=== PATIENT | female | born 1935 | race Caucasian/White ===

== ENCOUNTER 2017-07-20 08:07 | Day surgery (SDC) | payer MEDICARE, OTHER ==
[~2017-07-20 08:07] MED LIST: Lactated Ringers 1,000 ML IV SCH; Lidocaine 1%/Sod Bicarbonate in NS 8.4% 1 ML Syringe IV PRN; Sodium Chloride 0.9% 10 ML Syringe FLUSH PRN
[2017-07-20] MEDS ORDERED: Lidocaine 1% 50 ML MDV ONE (09:18)
[2017-07-20] MEDS ORDERED: Bupivacaine 0.25% 30 ML SDV ONE (09:18)
[2017-07-20 10:39] VITALS: BP 125/72
--- NOTE | 2017-07-25 13:44 | PCM.OPNOTE ---
- General Post-Op/Procedure Note Date of Surgery/Procedure: 07/20/17 Operative Procedure(s): right middle finger a1 jake release Pre Op Diagnosis: right middle finger stenosing tenosynovitis Post-Op Diagnosis: Same Anesthesia Technique: Local Primary Surgeon: Lenny Peterson Child Support Specialist: Shanel Stark in mLs: 5 Complications: None Condition: Good
--- NOTE | 2017-07-25 15:03 | OR ---
DATE OF OPERATION: 07/20/2017 SURGEON: Lenny Peterson MD OPERATION PERFORMED: Right middle finger A1 jake release. PREOPERATIVE DIAGNOSIS: Right middle finger stenosing and tenosynovitis. POSTOPERATIVE DIAGNOSIS: Right middle finger stenosing and tenosynovitis. ANESTHESIA: Local. AGRICULTURAL LOAN OFFICER: Shanel Stark PA-C ESTIMATED BLOOD LOSS: Less than 5 mL. COMPLICATIONS: None. CONDITION: Stable. DESCRIPTION OF PROCEDURE: The patient was identified in the preop holding area where proper site was marked and identified by the surgeon. The patient was taken back to the operating theater where the patient's right upper extremity was sterilely prepped and draped in the usual sterile fashion. OR time-out was performed. The patient did not received antibiotics and not indicated for soft tissue hand procedure. At this time, 1% lidocaine without epinephrine and 0.25% Marcaine without epinephrine were used to anesthetize the incisional site over the A1 jake of the right long finger. Once this was set up, the patient's right upper extremity was exsanguinated with an Esmarch and Esmarch was used on the forearm as a tourniquet. A standard transverse incision was made over the A1 jake. Blunt dissection was taken down to the A1 jake and flexor tendon sheath. Ragnell retractors were then placed both radially and ulnarly to protect the neurovascular bundle. [place]vik blade was then used for incision of the A1 jake. A tenotomy scissor was then used for release both proximally and distally making sure not to get into the A2 jake. At this time it was found to be adequate release both proximally and distally with no signs of triggering as the patient actively flexed and extended her long finger. At this time, adequate saline was irrigated through the wound. A 4-0 nylon simple suture was used for closure of the skin. The patient was placed in a sterile soft tissue dressing and sent to PACU in stable condition. MMODAL /[id number]
== END 2017-07-20 10:55 | disposition home or self-care (01) ==
LOC: JD.SDS 08:07
PROVIDERS: ATTEND Orthopaedic Surgery
DX: M65.331 Trigger finger, right middle finger (principal); G30.9 Alzheimer's disease, unspecified; F02.80 Dementia in other diseases classified elsewhere, unspecified severity, without behavioral disturbance, psychotic disturbance, mood disturbance, and anxiety; I48.91 Unspecified atrial fibrillation; I11.0 Hypertensive heart disease with heart failure; I50.30 Unspecified diastolic (congestive) heart failure; Z79.01 Long term (current) use of anticoagulants; Z79.82 Long term (current) use of aspirin; Z79.899 Other long term (current) drug therapy; Z88.8 Allergy status to other drugs, medicaments and biological substances; Z90.49 Acquired absence of other specified parts of digestive tract; Z90.710 Acquired absence of both cervix and uterus; Z98.41 Cataract extraction status, right eye; Z98.42 Cataract extraction status, left eye; Z98.890 Other specified postprocedural states; Z87.891 Personal history of nicotine dependence
CPT/HCPCS: 26055; 36415; 85610; 87641; J3490

== ENCOUNTER 2019-08-13 08:19 | Emergency (ER) | payer MEDICARE, OTHER ==
--- NOTE | 2019-08-13 08:53 | EDM.PDOC ---
ED HPI GENERAL MEDICAL PROBLEM - General Chief Complaint: Cardiovascular Problem Stated Complaint: FLUID RETENTION Time Seen by Provider: 08/13/19 08:53 - History of Present Illness INITIAL COMMENTS - FREE TEXT/NARRATIVE: 83-year-old female presents emergency room with weight gain worsening edema and shortness of breath. The patient has become progressively more short of breath and has developed a cough over the last several days This was noticed yesterday the patient was out with her daughter the daughter noticed significant shortness of breath. At the assisted living center they've noted fluid in her ankles for the last couple of days. She does have a history of congestive heart failure. She's had an SC several years ago and has atrial fibrillation and is on a factor X inhibitor. She is not taking any diuretics at this time. Patient denies any chest pain at this point complains mostly shortness of breath. The daughter put the patient on a scale this morning and apparently she has the 10 pounds. Neck Pain Score (Numeric/FACES): 7 - Related Data Allergies Allergy/AdvReac Type Severity Reaction Status Date / Time estrogens, conjugated Allergy Burning Verified 08/13/19 08:37 prednisone Allergy Hypertensio Verified 08/13/19 08:37 n dextromethorphan AdvReac Hyperactivi Verified 08/13/19 08:37 ty diphenhydramine HCl AdvReac Hyperactivi Verified 08/13/19 08:37 [From Benadryl] ty pseudoephedrine AdvReac Hyperactivi Verified 08/13/19 08:37 ty Home Meds: Home Meds Acetaminophen [Tylenol Arthritis Pain] 650 mg PO Q6HR PRN 12/03/13 [History] Isosorbide Mononitrate [Imdur] 120 mg PO DAILY 12/03/13 [History] amLODIPine Besylate [Amlodipine Besylate] 5 mg PO DAILY 12/03/13 [History] Rosuvastatin [Crestor] 20 mg PO DAILY 07/24/14 [History] Chlorthalidone 25 mg PO DAILY PRN 11/07/14 [History] Donepezil HCl [Aricept] 10 mg PO DAILY 07/19/17 [History] Metoprolol Tartrate [Lopressor] 25 mg PO BID 07/19/17 [History] Multivitamin [Poly-Vitamin] 1 tab PO DAILY 07/19/17 [History] traMADol HCl [Ultram] 50 - 100 mg PO Q6H PRN #10 tablet 07/20/17 [Rx] Aspirin [Halfprin] 81 mg PO DAILY 04/18/19 [History] Cholecalciferol (Vitamin D3) [Vitamin D3] 1,000 unit PO DAILY 04/18/19 [History] Cyanocobalamin (Vitamin B-12) [Vitamin B12] 2,500 mcg PO DAILY 04/18/19 [History ] Cyclobenzaprine [Flexeril] 5 mg PO TID PRN 04/18/19 [History] Diclofenac Sodium [Voltaren 1% Gel] 1 applic TOP ASDIRECTED PRN 04/18/19 [ History] Ferrous Sulfate [Feosol] 325 mg PO BID 04/18/19 [History] Folic Acid 1 mg PO DAILY 04/18/19 [History] Ipratropium [place] 2 spray INH TID 04/18/19 [History] Levothyroxine 25 mcg PO DAILY 04/18/19 [History] Loperamide HCl [Imodium A-D] 2 mg PO ASDIRECTED PRN 04/18/19 [History] Loratadine 10 mg PO DAILY 04/18/19 [History] Losartan [Cozaar] 50 mg PO BID 04/18/19 [History] Methyl Salicylate/Menthol [Salonpas Patch] 1 patch TOP ASDIRECTED 04/18/19 [ History] Rivaroxaban [Xarelto] 15 mg PO DAILY 04/18/19 [History] Sodium Chloride [Saline Nasal Mist] 2 spray INH ASDIRECTED PRN 04/18/19 [History ] Furosemide [Lasix] 20 mg PO DAILY #10 tab 08/13/19 [Rx] Potassium Chloride [Klor-Con 10] 10 meq PO DAILY #10 tablet.er 08/13/19 [Rx] Ubidecarenone [Coenzyme Q10] 1 tab PO DAILY 08/13/19 [History] Past Medical History HEENT History: Reports: Allergic Rhinitis, Cataract, Sinusitis Other HEENT History: upper denture, wears glasses Cardiovascular History: Reports: Afib, CAD, Heart Failure, Heart Murmur, High Cholesterol, Hypertension, SC, Stents, Other (See Below) Other Cardiovascular History: venous insufficiency, ACSCVD, cehst pain, chest wall contusion, peripheral vascular disease, edema Respiratory History: Reports: SOB Gastrointestinal History: Reports: Colon Polyp, Gastritis, Hemorrhoids, Other ( See Below) Other Gastrointestinal History: esophagitis, RUQ apin Genitourinary History: Reports: Chronic Renal Insuffiency, UTI, Recurrent Other Genitourinary History: frequency ACCOUNT EXECUTIVE AGRIBUSINESS History: Reports: , Other (See Below) Other ACCOUNT EXECUTIVE AGRIBUSINESS History: [employer] Musculoskeletal History: Reports: Back Pain, Chronic Other Musculoskeletal History: trigger finger release R 4th, arthrocentesis R shoulder and R hip, back surgery, spinal stenosis, neck pain, discetomy, buldged disc to neck, pinched nerve Neurological History: Reports: Alzheimers Disease Psychiatric History: Reports: Other (See Below) Other Psychiatric History: insomnia Endocrine/Metabolic History: Reports: None Hematologic History: Reports: Anemia, Iron Deficiency Immunologic History: Reports: None Oncologic (Cancer) History: Reports: None Dermatologic History: Reports: Other (See Below) Other Dermatologic History: dernatitis, lipoma, seborrheic keratosis, roascea - Past Surgical History Head Surgeries/Procedures: Reports: None HEENT Surgical History: Reports: Cataract Surgery Respiratory Surgical History: Reports: None GI Surgical History: Reports: Appendectomy, Cholecystectomy, Colonoscopy, EGD Other GI Surgeries/Procedures: hemorrhoid surgery Female Surgical History: Reports: Hysterectomy Endocrine Surgical History: Reports: None Neurological Surgical History: Reports: Discectomy, Other (See Below) Other Neurological Surgeries/Procedures: lumbar and cervical spine surgery Musculoskeletal Surgical History: Reports: Other (See Below) Other Musculoskeletal Surgeries/Procedures:: plate in neck Social & Family History - Family History Family Medical History: Noncontributory - Tobacco Use Smoking Status *Q: Former Smoker Used Tobacco, but Quit: Yes Month/Year Tobacco Last Used: 09/1994 - Caffeine Use Caffeine Use: Reports: None - Recreational Drug Use Recreational Drug Use: No ED ROS GENERAL - Review of Systems Review Of Systems: See Below Constitutional: Reports: No Symptoms Respiratory: Reports: Shortness of Breath, Cough. Denies: Wheezing, Pleuritic Chest Pain, Sputum, Hemoptysis Cardiovascular: Reports: Dyspnea on Exertion, Edema. Denies: Chest Pain Endocrine: Reports: Polyuria. Denies: No Symptoms GI/Abdominal: Reports: Other (She has a sense of abdominal fullness and perhaps some distention but no pain or discomfort). Denies: Abdominal Pain (She has a sense of abdominal fullness but no discomfort), Constipation, Diarrhea, Nausea, Vomiting : Reports: No Symptoms Musculoskeletal: Reports: No Symptoms Skin: Reports: No Symptoms Neurological: Reports: No Symptoms, Other (He has some underlying dementia but this is not changed) Psychiatric: Reports: No Symptoms. Denies: Agitation, Anxiety ED EXAM, GENERAL - Physical Exam Exam: See Below Exam Limited By: No Limitations General Appearance: Alert, No Apparent Distress, Other (Her initial O2 saturation was in the mid 80s she was started on supplemental oxygen per nasal cannula ) Head: Atraumatic, Normocephalic Neck: Normal Inspection. No: Full Range of Motion, Lymphadenopathy (R) Respiratory/Chest: No Respiratory Distress, Crackles (He has diffuse fine crackles throughout) Cardiovascular: Normal Peripheral Pulses, Other (She has an irregularly irregular rhythm significant 3/6 holosystolic murmur heard throughout the entire chest). No: Regular Rate, Rhythm, No Edema GI/Abdominal: Normal Bowel Sounds, Soft, Non-Tender. No: Guarding, Rigid, Rebound Back Exam: Normal Inspection. No: CVA Tenderness (L), CVA Tenderness (R) Extremities: Normal Inspection, Pedal Edema (2+ pretibial edema) Neurological: Alert, Oriented, Normal Cognition Psychiatric: Normal Mood EKG INTERPRETATION EKG Date: 08/13/19 Rhythm: A-Fib Len[place]: Normal P-Wave: Absent QRS: Other (Mild poor R-wave progression) ST-T: Normal QT: Normal Comparison: No Change (EKG done at [facility] on 07/13/17 was done shows no change of significance with today's exam) Course - Vital Signs Last Recorded V/S: Last Vital Signs Temp 36.0 C 08/13/19 08:29 Pulse 75 08/13/19 08:29 Resp 20 08/13/19 08:29 BP 122/81 08/13/19 08:29 Pulse Ox 85 L 08/13/19 08:29 - Orders/Labs/Meds Orders: Active Orders 24 hr Category Date Time Status EKG Documentation Completion [RC] STAT Care 08/13/19 09:01 Active Labs: Laboratory Tests 08/13/19 08/13/19 08/13/19 Range/Units 09:35 09:35 09:35 WBC 7.44 (3.98-10.04) K/mm3 RBC 3.29 L (3.98-5.22) M/mm3 Hgb 9.8 L D (11.2-15.7) gm/dl Hct 31.4 L (34.1-44.9) % MCV 95.4 H (79.4-94.8) fl MCH 29.8 (25.6-32.2) pg MCHC 31.2 L (32.2-35.5) g/dl RDW Std Deviation 48.7 H (36.4-46.3) fL Plt Count 321 (182-369) K/mm3 MPV 10.6 (9.4-12.3) fl Neutrophils % (Manual) 86 H (40-60) % Band Neutrophils % 0 (0-10) % Lymphocytes % (Manual) 11 L (20-40) % Atypical Lymphs % 0 % Monocytes % (Manual) 2 (2-10) % Eosinophils % (Manual) 1 (0.7-5.8) % Basophils % (Manual) 0 L (0.1-1.2) Platelet Estimate Adequate RBC Morph Comment Normal Sodium 145 (136-145) mEq/L Potassium 4.0 (3.5-5.1) mEq/L Chloride 106 (98-107) mEq/L Carbon Dioxide 28 (21-32) mEq/L Anion Gap 15.0 (5-15) BUN 32 H (7-18) mg/dL Creatinine 1.3 H (0.55-1.02) mg/dL Est Cr Clr Drug Dosing TNP Estimated GFR (MDRD) 39 (>60) mL/min BUN/Creatinine Ratio 24.6 H (14-18) Glucose 107 (83-115) mg/dL Calcium 9.4 (8.5-10.1) mg/dL Total Bilirubin 1.6 H (0.2-1.0) mg/dL AST 26 (15-37) U/L ALT 29 (14-59) U/L Alkaline Phosphatase 86 (46-116) U/L Troponin I 0.037 (0.00-0.056) ng/mL NT-Pro-B Natriuret Pep 63045 H (0-450) pg/mL Total Protein 6.8 (6.4-8.2) g/dl Albumin 3.8 (3.4-5.0) g/dl Globulin 3.0 gm/dL Albumin/Globulin Ratio 1.3 (1-2) Meds: Medications Discontinued Medications Generic Name Dose Route Start Last Admin Trade Name Frida PRN Reason Stop Dose Admin Furosemide 40 mg 08/13/19 09:00 08/13/19 09:36 Lasix IVPUSH 08/13/19 09:01 40 mg NOW ONE Administration - Re-Assessments/Exams Free Text/Narrative Re-Assessment/Exam: 08/13/19 11:27 Patient is feeling better she received 40 mg of IV Lasix. She voided several times. Her O2 saturation is doing well on 1 L at this point down from 2 L. Labs show a normal troponin BNP is just under 14,000. She's got a underlying anemia this is consistent with her lab work done a year ago. She has mild renal insufficiency with a creatinine of 1.3 view and slightly elevated this is again consistent with her lab work done a year ago. We will continue to watch and see if we can wean her down to room air before disposition. Chest x-ray was done which shows some mild early changes of CHF however she does have some tiny bilateral pleural effusions noted. 08/13/19 13:49 Patient has had nearly 2 L out of fluid and is breathing much better after the Lasix. She is on room air saturating between 90 and 94% at rest. We'll discharge on Lasix 20 mg a day for up to 7 days and potassium chloride 10 mEq daily. Will also have her take some magnesium oral supplements as she is developed some cramping, albeit mild, in her lower legs after getting the Lasix. Departure - Departure Time of Disposition: 13:54 Disposition: Home, Self-Care 01 Clinical Impression: CHF (congestive heart failure) Prescriptions: Furosemide [Lasix] 20 mg PO DAILY #10 tab Potassium Chloride [Klor-Con 10] 10 meq PO DAILY #10 tablet.er Referrals: Jameson Stanley MD [Primary Care Provider] - Forms: ED Department Discharge Additional Instructions: Return to the emergency room with any questions problems or worsening symptoms. Follow-up with your regular doctor in 2 days if possible. Take the Lasix and potassium 1 each daily until your weight is back at normal. I would also recommend that you start taking magnesium oxide 400 mg a day. Sepsis Event Note - Focused Exam Vital Signs: Vital Signs Temp Pulse Resp BP Pulse Ox 08/13/19 08:29 36.0 C 75 20 122/81 85 L Date Exam was Performed: 08/13/19 Time Exam was Performed: 13:39 - My Orders Last 24 Hours: My Active Orders 08/13/19 09:01 EKG Documentation Completion [RC] STAT - Assessment/Plan Last 24 Hours: My Active Orders 08/13/19 09:01 EKG Documentation Completion [RC] STAT
[2019-08-13] MEDS ORDERED: Furosemide 40 MG/4 ML VIAL IVPUSH ONE (09:00)
--- NOTE | 2019-08-13 09:59 | CR ---
Chest: PA and lateral views of the chest were obtained. Comparison: Prior chest x-ray of 11/30/15. Heart size is mildly enlarged. Pulmonary vessels are congested. Small bilateral pleural effusions are seen. Emphysematous changes are present. Previous cervical spine surgery is noted. Scoliosis is noted within the spine. Impression: 1. Findings suspicious for mild CHF. 2. Emphysematous change. Diagnostic code #3 This report was dictated in [place] Standard Time
[2019-08-13] MEDS ORDERED: Magnesium Oxide 400 MG Tab PO ONE (13:50)
[2019-08-13] MEDS ORDERED: Potassium Chloride 20 MEQ Tab.ER PO ONE (13:51)
[2019-08-13 15:06] VITALS: BP 142/102; PULSE 76
== END 2019-08-13 14:45 | disposition home or self-care (01) ==
LOC: JD.ED 08:19
DX: I13.0 Hypertensive heart and chronic kidney disease with heart failure and stage 1 through stage 4 chronic kidney disease, or unspecified chronic kidney disease (principal); N18.9 Chronic kidney disease, unspecified; I50.9 Heart failure, unspecified; D63.1 Anemia in chronic kidney disease; I48.91 Unspecified atrial fibrillation; I25.10 Atherosclerotic heart disease of native coronary artery without angina pectoris; E78.00 Pure hypercholesterolemia, unspecified; I25.2 Old myocardial infarction; G30.9 Alzheimer's disease, unspecified; F02.80 Dementia in other diseases classified elsewhere, unspecified severity, without behavioral disturbance, psychotic disturbance, mood disturbance, and anxiety; Z87.891 Personal history of nicotine dependence; Z88.8 Allergy status to other drugs, medicaments and biological substances; Z79.82 Long term (current) use of aspirin; Z79.899 Other long term (current) drug therapy; Z79.01 Long term (current) use of anticoagulants
CPT/HCPCS: 36415; 71046; 80053; 83880; 84484; 85007; 85027; 93005; 96374; 99285; A9270; J1940; 93010; 99284

== ENCOUNTER 2020-04-09 15:18 | Inpatient (IN) | payer MEDICARE, OTHER ==
[2020-04-09] MEDS ORDERED: Sodium Chloride 0.9% 1,000 ML IV SCH (16:15)
[2020-04-09] MEDS ORDERED: Lactated Ringers 500 ML IV ONE (16:29)
[2020-04-09] MEDS ORDERED: Pantoprazole 40 MG Vial IVPUSH ONE (16:29)
[2020-04-09] MEDS ORDERED: Pantoprazole 80 MG in Sodium Chloride 0.9% 100 ML IV SCH (16:30)
[2020-04-09] MEDS ORDERED: Factor IX Complex Human 500 UNIT VIAL IV STA (16:42)
--- NOTE | 2020-04-09 16:42 | EDM.PDOC ---
ED HPI GENERAL MEDICAL PROBLEM - General Chief Complaint: Abdominal Pain Stated Complaint: BACK/NECK PAIN Time Seen by Provider: 04/09/20 16:14 Source of Information: Reports: Patient, Family (Daughter) History Limitations: Reports: Altered Mental Status (Dementia) - History of Present Illness INITIAL COMMENTS - FREE TEXT/NARRATIVE: Mrs. Almaguer is a very pleasant 84-year-old woman with numerous chronic medical problems, including coronary artery disease, on a baby aspirin, and atrial fibrillation, on Xarelto and metoprolol, who is now brought to the ED from her residence at [facility], with a report that she had neck pain and dyspnea since the weekend, and that she developed upper abdominal pain today. She has not had vomiting or diarrhea. According to the patient's daughter, who is at the patient's bedside, the patient has not had similar symptoms in the past. He mentioned that her mother has not been eating well for the past few days. Here in the ED, the patient's initial BP is found to be depressed at 99/46 with a HR of 59 bpm. She is afebrile, saturating 97% on room air. Other than her current symptoms, according to the patient's daughter, the patient has not had a recent fever, chills, sore throat, ear pain, nasal or sinus congestion, cough, dyspnea, chest pain, palpitations, nausea, vomiting, constipation, diarrhea, abdominal pain, urinary symptoms, recent weight gain or weight loss, recent bloody bowel movements or black bowel movements, recent joint aches, headaches, or rashes. The patient is DNR/DNI. The patient's PCP is Dr. Jameson Stanley. Neck Pain Score (Numeric/FACES): 4 Bilateral Abdominal Pain Score (Numeric/FACES): 7 - Related Data Allergies Allergy/AdvReac Type Severity Reaction Status Date / Time estrogens, conjugated Allergy Burning Verified 08/13/19 08:37 dextromethorphan AdvReac Hyperactivi Verified 08/13/19 08:37 ty diphenhydramine HCl AdvReac Hyperactivi Verified 08/13/19 08:37 [From Benadryl] ty prednisone AdvReac Hypertensio Verified 04/09/20 16:16 n pseudoephedrine AdvReac Hyperactivi Verified 08/13/19 08:37 ty Home Meds: Home Meds Acetaminophen [Tylenol Arthritis Pain] 650 mg PO Q6HR PRN 12/03/13 [History] Isosorbide Mononitrate [Imdur] 120 mg PO DAILY 12/03/13 [History] amLODIPine Besylate [Amlodipine Besylate] 5 mg PO DAILY 12/03/13 [History] Rosuvastatin [Crestor] 20 mg PO DAILY 07/24/14 [History] Chlorthalidone 25 mg PO DAILY PRN 11/07/14 [History] Donepezil HCl [Aricept] 10 mg PO DAILY 07/19/17 [History] Metoprolol Tartrate [Lopressor] 25 mg PO BID 07/19/17 [History] Multivitamin [Poly-Vitamin] 1 tab PO DAILY 07/19/17 [History] traMADol HCl [Ultram] 50 - 100 mg PO Q6H PRN #10 tablet 07/20/17 [Rx] Aspirin [Halfprin] 81 mg PO DAILY 04/18/19 [History] Cholecalciferol (Vitamin D3) [Vitamin D3] 1,000 unit PO DAILY 04/18/19 [History] Cyanocobalamin (Vitamin B-12) [Vitamin B12] 2,500 mcg PO DAILY 04/18/19 [History] Cyclobenzaprine [Flexeril] 5 mg PO TID PRN 04/18/19 [History] Diclofenac Sodium [Voltaren 1% Gel] 1 applic TOP ASDIRECTED PRN 04/18/19 [History] Ferrous Sulfate [Feosol] 325 mg PO BID 04/18/19 [History] Folic Acid 1 mg PO DAILY 04/18/19 [History] Ipratropium Amelia 2 spray INH TID 04/18/19 [History] Levothyroxine 25 mcg PO DAILY 04/18/19 [History] Loperamide HCl [Imodium A-D] 2 mg PO ASDIRECTED PRN 04/18/19 [History] Loratadine 10 mg PO DAILY 04/18/19 [History] Losartan [Cozaar] 50 mg PO BID 04/18/19 [History] Methyl Salicylate/Menthol [Salonpas Patch] 1 patch TOP ASDIRECTED 04/18/19 [History] Rivaroxaban [Xarelto] 15 mg PO DAILY 04/18/19 [History] Sodium Chloride [Saline Nasal Mist] 2 spray INH ASDIRECTED PRN 04/18/19 [History] Furosemide [Lasix] 20 mg PO DAILY #10 tab 08/13/19 [Rx] Potassium Chloride [Klor-Con 10] 10 meq PO DAILY #10 tablet.er 08/13/19 [Rx] Ubidecarenone [Coenzyme Q10] 1 tab PO DAILY 08/13/19 [History] Past Medical History HEENT History: Reports: Allergic Rhinitis, Impaired Vision (wears glasses), Other (See Below) (Upper dentures) Cardiovascular History: Reports: Afib, CAD, Heart Failure, High Cholesterol, Hypertension, [place], Stents Gastrointestinal History: Reports: Colon Polyp, Gastritis, Hemorrhoids Genitourinary History: Reports: Chronic Renal Insuffiency Musculoskeletal History: Reports: Back Pain, Chronic (Spinal stenosis) Neurological History: Reports: Alzheimers Disease Psychiatric History: Reports: Other (See Below) (Insomnia) Hematologic History: Reports: Anemia, Iron Deficiency - Past Surgical History HEENT Surgical History: Reports: Cataract Surgery GI Surgical History: Reports: Appendectomy, Cholecystectomy, Colonoscopy, EGD, Other (See Below) (Hemorrhoidectomy) Female Surgical History: Reports: Hysterectomy Neurological Surgical History: Reports: C-Spine (fusion), Lumbar Spine Musculoskeletal Surgical History: Reports: Other (See Below) (Right 4th trigger finger release) Social & Family History - Family History Family Medical History: Noncontributory - Tobacco Use Smoking Status *Q: Former Smoker Years of Tobacco use: 41 Packs/Tins Daily: 2 Month/Year Tobacco Last Used: Quit 1994 - Caffeine Use Caffeine Use: Reports: None - Alcohol Use Alcohol Use History: No - Recreational Drug Use Recreational Drug Use: No - Living Situation & Occupation Living situation: Reports: , with Spouse, Assisted Living ([facility]) Occupation: Retired ED ROS GENERAL - Review of Systems Review Of Systems: Comprehensive ROS is negative, except as noted in HPI. ED EXAM, GI/ABD - Physical Exam Exam: See Below Exam Limited By: No Limitations General Appearance: Alert, WD/WN, No Apparent Distress Eyes: Bilateral: Normal Appearance, EOMI Ears: Normal External Exam, Hearing Grossly Normal Nose: Normal Inspection Throat/Mouth: Normal Inspection, Normal Lips, Normal Voice, No Airway Compromise Head: Atraumatic, Normocephalic Neck: Normal Inspection, Full Range of Motion Respiratory/Chest: No Respiratory Distress, Lungs Clear, Normal Breath Sounds, No Accessory Muscle Use Cardiovascular: Normal Peripheral Pulses, Regular Rate, Rhythm, No Edema, No Gallop, No JVD, No Rub, Systolic Murmur (harsh, al LLSB, c/w TR) GI/Abdominal Exam: Normal Bowel Sounds, Soft, No Organomegaly, No Distention, No Abnormal Bruit, No Mass, Tender (Mild to moderate, in the epigastrium only. Nontender elsewhere.) (Female) Exam: Deferred Rectal (Female) Exam: Normal Rectal Tone, Black Stool, Heme + Stool, Hemorrhoids (external, non-thrombosed) Back Exam: Normal Inspection, Full Range of Motion, NT Extremities: Normal Inspection, Normal Range of Motion, Normal Capillary Refill Neurological: Alert, No Motor/Sensory Deficits, Confused, Disoriented Psychiatric: Normal Affect Skin Exam: Warm, Dry, Intact, Normal Color, No Rash Course - Vital Signs Last Recorded V/S: Last Vital Signs Temp 36.4 C 04/09/20 15:41 Pulse 59 L 04/09/20 15:41 Resp 20 04/09/20 15:41 BP 99/46 L 04/09/20 15:41 Pulse Ox 97 04/09/20 15:41 - Orders/Labs/Meds Orders: Active Orders 24 hr Category Date Time Status EKG 12 Lead [EKG Documentation Completion] [RC] STAT Care 04/09/20 17:25 Active Gastrointestinal Tube Mgmt [RC] ASDIRECTED Care 04/09/20 16:33 Active Ang Chest [CT] Stat Exams 04/09/20 17:07 Ordered MAGNESIUM [CHEM] Stat Lab 04/09/20 15:53 Received PHOSPHORUS [CHEM] Stat Lab 04/09/20 15:53 Received RED BLOOD CELLS LP [BBK] Stat Lab 04/09/20 15:53 Results TYPE AND SCREEN [BBK] Stat Lab 04/09/20 15:53 Results Lactated Ringers [Ringers, Lactated] 1,000 ml Med 04/09/20 17:31 Active IV .BOLUS Norepinephrine [Levophed] 4 mg Med 04/09/20 17:15 Active Dextrose 5% in Water 246 ml IV TITRATE Sodium Chloride 0.9% [Normal Saline] 100 ml Med 04/09/20 17:30 Active IV ASDIRECTED Sodium Chloride 0.9% [Saline Flush] Med 04/09/20 17:18 Active 10 ml FLUSH ONETIME PRN Nasogastric Orogastric Tube Insertion [OM.PC] Routine Oth 04/09/20 16:33 Ordered Medication Orders Norepinephrine Bitartrate 4 mg (/ Dextrose/Water) 250 mls @ 7.5 mls/hr IV TITRATE RADHA; Protocol Last Admin: 04/09/20 17:29 Dose: 2 mcg/min, 7.5 mls/hr Documented by: NICKOLAS Sodium Chloride (Normal Saline) 100 mls @ 60 mls/hr IV ASDIRECTED RADHA Lactated Ringer's (Ringers, Lactated) 1,000 mls @ 999 mls/hr IV .BOLUS ONE Stop: 04/09/20 18:31 Sodium Chloride (Saline Flush) 10 ml FLUSH ONETIME PRN PRN Reason: Keep Vein Open Labs: Laboratory Tests 04/09/20 04/09/20 04/09/20 Range/Units 15:53 15:53 15:53 WBC 15.50 H (3.98-10.04) K/mm3 RBC 2.54 L (3.98-5.22) M/mm3 Hgb 5.7 L* D (11.2-15.7) gm/dl Hct 21.2 L (34.1-44.9) % MCV 83.5 D (79.4-94.8) fl MCH 22.4 L (25.6-32.2) pg MCHC 26.9 L (32.2-35.5) g/dl RDW Std Deviation 49.1 H (36.4-46.3) fL Plt Count 405 H D (182-369) K/mm3 MPV 10.0 (9.4-12.3) fl Neut % (Auto) 79.2 H (34.0-71.1) % Lymph % (Auto) 6.5 L (19.3-51.7) % Gonzales % (Auto) 14.0 H (4.7-12.5) % Eos % (Auto) 0 L (0.7-5.8) Baso % (Auto) 0.1 (0.1-1.2) % Neut # (Auto) 12.28 H (1.56-6.13) K/mm3 Lymph # (Auto) 1.01 L (1.18-3.74) K/mm3 Gonzales # (Auto) 2.17 H (0.24-0.36) K/mm3 Eos # (Auto) 0.00 L (0.04-0.36) K/mm3 Baso # (Auto) 0.01 (0.01-0.08) K/mm3 Manual Slide Review Abnormal smear Sodium 138 (136-145) mEq/L Potassium 6.5 H* D (3.5-5.1) mEq/L Chloride 100 (98-107) mEq/L Carbon Dioxide 15 L D (21-32) mEq/L Anion Gap 29.5 H (5-15) BUN 75 H D (7-18) mg/dL Creatinine 3.8 H D (0.55-1.02) mg/dL Est Cr Clr Drug Dosing 9.52 mL/min Estimated GFR (MDRD) 11 (>60) mL/min BUN/Creatinine Ratio 19.7 H (14-18) Glucose 94 (83-115) mg/dL Calcium 9.5 (8.5-10.1) mg/dL Total Bilirubin 1.1 H (0.2-1.0) mg/dL AST 51 H (15-37) U/L ALT 34 (14-59) U/L Alkaline Phosphatase 61 (46-116) U/L Troponin I 0.182 H* (0.00-0.056) ng/mL Total Protein 6.5 (6.4-8.2) g/dl Albumin 3.5 (3.4-5.0) g/dl Globulin 3.0 gm/dL Albumin/Globulin Ratio 1.2 (1-2) Urine Color (Yellow) Urine Appearance (Clear) Urine pH (5.0-8.0) Ur Specific [place] (1.005-1.030) Urine Protein (Negative) Urine Glucose (UA) (Negative) Urine Ketones (Negative) Urine Occult Blood (Negative) Urine Nitrite (Negative) Urine Bilirubin (Negative) Urine Urobilinogen (0.2-1.0) Ur Leukocyte Esterase (Negative) Urine RBC (0-5) /hpf Urine WBC (0-5) /hpf Ur Squamous Epith Cells (0-5) /hpf Amorphous Sediment (NOT SEEN) /hpf Urine Bacteria (FEW) /hpf Urine Mucus (FEW) /hpf Crossmatch See Detail 04/09/20 Range/Units 16:06 WBC (3.98-10.04) K/mm3 RBC (3.98-5.22) M/mm3 Hgb (11.2-15.7) gm/dl Hct (34.1-44.9) % MCV (79.4-94.8) fl MCH (25.6-32.2) pg MCHC (32.2-35.5) g/dl RDW Std Deviation (36.4-46.3) fL Plt Count (182-369) K/mm3 MPV (9.4-12.3) fl Neut % (Auto) (34.0-71.1) % Lymph % (Auto) (19.3-51.7) % Gonzales % (Auto) (4.7-12.5) % Eos % (Auto) (0.7-5.8) Baso % (Auto) (0.1-1.2) % Neut # (Auto) (1.56-6.13) K/mm3 Lymph # (Auto) (1.18-3.74) K/mm3 Gonzales # (Auto) (0.24-0.36) K/mm3 Eos # (Auto) (0.04-0.36) K/mm3 Baso # (Auto) (0.01-0.08) K/mm3 Manual Slide Review Sodium (136-145) mEq/L Potassium (3.5-5.1) mEq/L Chloride (98-107) mEq/L Carbon Dioxide (21-32) mEq/L Anion Gap (5-15) BUN (7-18) mg/dL Creatinine (0.55-1.02) mg/dL Est Cr Clr Drug Dosing mL/min Estimated GFR (MDRD) (>60) mL/min BUN/Creatinine Ratio (14-18) Glucose (83-115) mg/dL Calcium (8.5-10.1) mg/dL Total Bilirubin (0.2-1.0) mg/dL AST (15-37) U/L ALT (14-59) U/L Alkaline Phosphatase (46-116) U/L Troponin I (0.00-0.056) ng/mL Total Protein (6.4-8.2) g/dl Albumin (3.4-5.0) g/dl Globulin gm/dL Albumin/Globulin Ratio (1-2) Urine Color Yellow (Yellow) Urine Appearance Slt cloudy H (Clear) Urine pH 5.0 (5.0-8.0) Ur Specific [place] > or = 1.030 (1.005-1.030) Urine Protein Negative (Negative) Urine Glucose (UA) Negative (Negative) Urine Ketones Negative (Negative) Urine Occult Blood Negative (Negative) Urine Nitrite Negative (Negative) Urine Bilirubin 1+ H (Negative) Urine Urobilinogen 1.0 (0.2-1.0) Ur Leukocyte Esterase 1+ H (Negative) Urine RBC 0-5 (0-5) /hpf Urine WBC 0-5 (0-5) /hpf Ur Squamous Epith Cells Not seen (0-5) /hpf Amorphous Sediment Few H (NOT SEEN) /hpf Urine Bacteria Moderate H (FEW) /hpf Urine Mucus Not seen (FEW) /hpf Crossmatch Meds: Medications Generic Name Dose Route Start Last Admin Trade Name Freq PRN Reason Stop Dose Admin Norepinephrine Bitartrate 4 mg 250 mls @ 7.5 mls/hr 04/09/20 17:15 04/09/20 17:29 / Dextrose/Water IV 2 mcg/min TITRATE RADHA 7.5 mls/hr Administration Protocol 2 MCG/MIN Sodium Chloride 100 mls @ 60 mls/hr 04/09/20 17:30 Normal Saline IV ASDIRECTED RADHA Lactated Ringer's 1,000 mls @ 999 mls/hr 04/09/20 17:31 Ringers, Lactated IV 04/09/20 18:31 .BOLUS ONE Sodium Chloride 10 ml 04/09/20 17:18 Saline Flush FLUSH ONETIME PRN Keep Vein Open Discontinued Medications Generic Name Dose Route Start Last Admin Trade Name Freq PRN Reason Stop Dose Admin Factor IX (Pha) 2,000 unit 04/09/20 16:42 04/09/20 17:05 Kcentra IV 04/09/20 16:43 2,000 unit ONETIME STA Administration Sodium Chloride 1,000 mls @ 150 mls/hr 04/09/20 16:15 04/09/20 16:19 Normal Saline IV 150 mls/hr ASDIRECTED RADHA Administration Lactated Ringer's 500 mls @ 999 mls/hr 04/09/20 16:29 04/09/20 16:40 Ringers, Lactated IV 04/09/20 16:59 999 mls/hr .BOLUS ONE Administration Pantoprazole Sodium 80 mg/ 100 mls @ 10 mls/hr 04/09/20 16:30 Sodium Chloride IV Q10H RADHA 8 MG/HR Lactated Ringer's Confirm 04/09/20 17:28 Ringers, Lactated Administered 04/09/20 17:29 Dose 1,000 mls @ as directed .ROUTE .STK-MED ONE Iopamidol 100 ml 04/09/20 17:18 Isovue-370 (76%) IVPUSH 04/09/20 17:19 ONETIME ONE Pantoprazole Sodium 80 mg 04/09/20 16:29 04/09/20 17:10 Protonix Iv IVPUSH 04/09/20 16:30 80 mg BOLUS ONE Administration - Re-Assessments/Exams Free Text/Narrative Re-Assessment/Exam: 04/09/20 16:31 As above, the patient may have had neck pain and dyspnea for the past 5 days, approximately, then developed gastric abdominal pain today. No history of vomiting or diarrhea. Here in the ED, her BP is found to be low, with bradycardia. On examination, she complained of epigastric abdominal tenderness, and on rectal exam, she had black stool that was grossly heme positive. Her history and physical exam are consistent with an upper GI bleed. For ordered that an NG tube be placed so that we can get an estimate as to whether or not th ere is blood or coffee grounds in the stomach. Case discussed with Dr. Salazar at 16:25. He did not feel that an emergent EGD was indicated. He recommended that the patient be admitted to the Hospitalist with him on consult. He recommended that her Xarelto and aspirin be held. 04/09/20 16:35 The patient's H/H had returned slightly depressed at 5.7/21.2, and her BP is now down to 49/28. I have ordered a 500 mL bolus of LR. I called the blood bank and requested that 2 units of type of blood to be brought to the ED for emergent transfusion. I will also request 2 units of FFP, and will order K-Centra. 04/09/20 16:44 As above, the patient's CBC is remarkable for a WBC count elevated at 15.50, with an H/H present 5.7/21.2, and platelets mildly elevated at 405,000. Her CMP is remarkable for a potassium elevated at 6.5, and a bicarbonate depressed at 15 with an anion gap elevated at 29.5. Her BUN/Cr are elevated at 75/3.8. Her Tbil is slightly elevated at 1.1. Her AST is slightly elevated at 51, with an ALT normal at 34, the remainder of her CMP being unremarkable. Her troponin is mildly elevated at 0.182. Her urinalysis is unremarkable. Reviewing prior labs, I see that the patient's BUN/Cr were 32/1.3 on 08/13/2019. Her potassium, bicarbonate, and anion gap were normal at that time. 04/09/20 17:[address] Sutherland at 16:57. She agreed to admit the patient to the ICU. She is coming to the ED to evaluate the patient now. Departure - Departure Time of Disposition: 17:00 Disposition: DC/Tfer to Acute Hospital 02 Condition: Serious Clinical Impression: Upper GI bleed, Hyperkalemia, High anion gap metabolic acidosis, Acute on chronic renal insufficiency, Severe anemia - Discharge Information *PRESCRIPTION DRUG MONITORING PROGRAM REVIEWED*: Not Applicable *COPY OF PRESCRIPTION DRUG MONITORING REPORT IN PATIENT BERTO: Not Applicable Referrals: Jameson Stanley MD [Primary Care Provider] - Forms: ED Department Discharge Sepsis Event Note (ED) - Evaluation Sepsis Screening Result: No Definite Risk - Focused Exam Vital Signs: Vital Signs Temp Pulse Resp BP Pulse Ox 04/09/20 15:41 36.4 C 59 L 20 99/46 L 97 - My Orders Last 24 Hours: My Active Orders 04/09/20 15:53 RED BLOOD CELLS LP [BBK] Stat TYPE AND SCREEN [BBK] Stat 04/09/20 16:33 Gastrointestinal Tube Mgmt [RC] ASDIRECTED Nasogastric Orogastric Tube Insertion [OM.PC] Routine 04/09/20 17:18 Sodium Chloride 0.9% [Saline Flush] 10 ml FLUSH ONETIME PRN 04/09/20 17:30 Sodium Chloride 0.9% [Normal Saline] 100 ml IV ASDIRECTED - Assessment/Plan Last 24 Hours: My Active Orders 04/09/20 15:53 RED BLOOD CELLS LP [BBK] Stat TYPE AND SCREEN [BBK] Stat 04/09/20 16:33 Gastrointestinal Tube Mgmt [RC] ASDIRECTED Nasogastric Orogastric Tube Insertion [OM.PC] Routine 04/09/20 17:18 Sodium Chloride 0.9% [Saline Flush] 10 ml FLUSH ONETIME PRN 04/09/20 17:30 Sodium Chloride 0.9% [Normal Saline] 100 ml IV ASDIRECTED
[2020-04-09] MEDS ORDERED: Iopamidol 755 Mg/ML 100 ML Bottle IVPUSH ONE (17:18)
[2020-04-09] MEDS ORDERED: Sodium Chloride 0.9% 10 ML Syringe FLUSH PRN (17:18)
[2020-04-09] MEDS ORDERED: Lactated Ringers 1,000 ML ONE (17:28)
[2020-04-09] MEDS: Norepinephrine 4 MG in Dextrose 5% in Water 246 ML IV SCH ×4 (17:29→23:55)
[2020-04-09] MEDS ORDERED: Sodium Chloride 0.9% 100 ML IV SCH (17:30)
[2020-04-09] MEDS ORDERED: Lactated Ringers 1,000 ML IV ONE ×2 (17:31→17:48)
--- NOTE | 2020-04-09 18:44 | PCM.CONS ---
H&P History of Present Illness - General Date of Service: 04/09/20 Admit Problem/Dx: Admission Diagnosis/Problem Admission Diagnosis/Problem Bleeding Source of Information: Old Records History Limitations: Reports: Other (dementia) - History of Present Illness Other HPI/Comments: Mrs. Almaguer is a frail 84 yo woman living in a [facility] who presented to the emergency department today with weakness, fatigue and abdominal pain who was profoundly hypotensive on arrival and found to have a Hgb of 5.7 g/dL. Rectal exam was significant for black, heme-positive stool. The patient takes 15 mg rivaroxaban for her atrial fibrillation. She has documented chronic renal insufficiency, with BUN 75 and creatinine about 3.5 mg/dL today. She has a history of myocardial infarction and congestive heart failure, and she takes aricept for dementia. After receiving 2 u pRBC and 2 liters of crystalloid in the emergency room, her systolic blood pressure is in the 120-130 range with HR in the 60s, though she takes a beta adela. She appears anemic, but in no distress, with cool, dry extremities and palpable distal pulses. Neck Pain Score (Numeric/FACES): 4 Bilateral Abdominal Pain Score (Numeric/FACES): 7 - Related Data Allergies/Adverse Reactions: Allergies Allergy/AdvReac Type Severity Reaction Status Date / Time estrogens, conjugated Allergy Burning Verified 08/13/19 08:37 dextromethorphan AdvReac Hyperactivi Verified 08/13/19 08:37 ty diphenhydramine HCl AdvReac Hyperactivi Verified 08/13/19 08:37 [From Benadryl] ty prednisone AdvReac Hypertensio Verified 04/09/20 16:16 n pseudoephedrine AdvReac Hyperactivi Verified 08/13/19 08:37 ty Home Medications: Home Meds Acetaminophen [Tylenol Arthritis Pain] 650 mg PO Q6HR PRN 12/03/13 [History] Isosorbide Mononitrate [Imdur] 120 mg PO DAILY 12/03/13 [History] amLODIPine Besylate [Amlodipine Besylate] 5 mg PO DAILY 12/03/13 [History] Rosuvastatin [Crestor] 20 mg PO DAILY 07/24/14 [History] Chlorthalidone 25 mg PO DAILY PRN 11/07/14 [History] Donepezil HCl [Aricept] 10 mg PO DAILY 07/19/17 [History] Metoprolol Tartrate [Lopressor] 25 mg PO BID 07/19/17 [History] Multivitamin [Poly-Vitamin] 1 tab PO DAILY 07/19/17 [History] traMADol HCl [Ultram] 50 - 100 mg PO Q6H PRN #10 tablet 07/20/17 [Rx] Aspirin [Halfprin] 81 mg PO DAILY 04/18/19 [History] Cholecalciferol (Vitamin D3) [Vitamin D3] 1,000 unit PO DAILY 04/18/19 [History] Cyanocobalamin (Vitamin B-12) [Vitamin B12] 2,500 mcg PO DAILY 04/18/19 [History] Cyclobenzaprine [Flexeril] 5 mg PO TID PRN 04/18/19 [History] Diclofenac Sodium [Voltaren 1% Gel] 1 applic TOP ASDIRECTED PRN 04/18/19 [History] Ferrous Sulfate [Feosol] 325 mg PO BID 04/18/19 [History] Folic Acid 1 mg PO DAILY 04/18/19 [History] Ipratropium [place] 2 spray INH TID 04/18/19 [History] Levothyroxine 25 mcg PO DAILY 04/18/19 [History] Loperamide HCl [Imodium A-D] 2 mg PO ASDIRECTED PRN 04/18/19 [History] Loratadine 10 mg PO DAILY 04/18/19 [History] Losartan [Cozaar] 50 mg PO BID 04/18/19 [History] Methyl Salicylate/Menthol [Salonpas Patch] 1 patch TOP ASDIRECTED 04/18/19 [History] Rivaroxaban [Xarelto] 15 mg PO DAILY 04/18/19 [History] Sodium Chloride [Saline Nasal Mist] 2 spray INH ASDIRECTED PRN 04/18/19 [History] Furosemide [Lasix] 20 mg PO DAILY #10 tab 08/13/19 [Rx] Potassium Chloride [Klor-Con 10] 10 meq PO DAILY #10 tablet.er 08/13/19 [Rx] Ubidecarenone [Coenzyme Q10] 1 tab PO DAILY 08/13/19 [History] Past Medical History HEENT History: Reports: Allergic Rhinitis, Impaired Vision (wears glasses), Other (See Below) (Upper dentures) Other HEENT History: upper denture, wears glasses Cardiovascular History: Reports: Afib, CAD, Heart Failure, High Cholesterol, Hypertension, OH, Stents Other Cardiovascular History: venous insufficiency, ACSCVD, cehst pain, chest wall contusion, peripheral vascular disease, edema Respiratory History: Reports: SOB Gastrointestinal History: Reports: Colon Polyp, Gastritis, Hemorrhoids Other Gastrointestinal History: esophagitis, RUQ apin Genitourinary History: Reports: Chronic Renal Insuffiency Other Genitourinary History: frequency [employer] History: Reports: , Other (See Below) Other OB/BYN History: [place] Musculoskeletal History: Reports: Back Pain, Chronic (Spinal stenosis) Other Musculoskeletal History: trigger finger release R 4th, arthrocentesis R shoulder and R hip, back surgery, spinal stenosis, neck pain, discetomy, buldged disc to neck, pinched nerve Neurological History: Reports: Alzheimers Disease Psychiatric History: Reports: Other (See Below) (Insomnia) Other Psychiatric History: insomnia Endocrine/Metabolic History: Reports: None Hematologic History: Reports: Anemia, Iron Deficiency Immunologic History: Reports: None Oncologic (Cancer) History: Reports: None Dermatologic History: Reports: Other (See Below) Other Dermatologic History: dernatitis, lipoma, seborrheic keratosis, roascea - Past Surgical History HEENT Surgical History: Reports: Cataract Surgery GI Surgical History: Reports: Appendectomy, Cholecystectomy, Colonoscopy, EGD, Other (See Below) (Hemorrhoidectomy) Female Surgical History: Reports: Hysterectomy Neurological Surgical History: Reports: C-Spine (fusion), Lumbar Spine Musculoskeletal Surgical History: Reports: Other (See Below) (Right 4th trigger finger release) Social & Family History - Family History Family Medical History: Noncontributory - Tobacco Use Smoking Status *Q: Former Smoker Years of Tobacco use: 41 Packs/Tins Daily: 2 Month/Year Tobacco Last Used: Quit 1994 - Caffeine Use Caffeine Use: Reports: None - Recreational Drug Use Recreational Drug Use: No - Living Situation & Occupation Living situation: Reports: , with Spouse, Assisted Living ([facility]) Occupation: Retired H&P Review of Systems - Review of Systems: Review Of Systems: Unable To Obtain Reason Not Obtained: advanced dementia Gastrointestinal: Reports: Abdominal Pain Hematologic/Lymphatic: Reports: Easy Bleeding Exam - Exam Exam: See Below - Vital Signs Vital Signs: Last Vital Signs Temp 36.4 C 04/09/20 15:41 Pulse 59 L 04/09/20 15:41 Resp 20 04/09/20 15:41 BP 99/46 L 04/09/20 15:41 Pulse Ox 97 04/09/20 15:41 Weight: 62.596 kg - Patient Data Lab Results Last 24 hrs: Laboratory Results - last 24 hr 04/09/20 04/09/20 04/09/20 Range/Units 15:53 15:53 15:53 WBC 15.50 H (3.98-10.04) K/mm3 RBC 2.54 L (3.98-5.22) M/mm3 Hgb 5.7 L* D (11.2-15.7) gm/dl Hct 21.2 L (34.1-44.9) % MCV 83.5 D (79.4-94.8) fl MCH 22.4 L (25.6-32.2) pg MCHC 26.9 L (32.2-35.5) g/dl RDW Std Deviation 49.1 H (36.4-46.3) fL Plt Count 405 H D (182-369) K/mm3 MPV 10.0 (9.4-12.3) fl Neut % (Auto) 79.2 H (34.0-71.1) % Lymph % (Auto) 6.5 L (19.3-51.7) % [place] % (Auto) 14.0 H (4.7-12.5) % Eos % (Auto) 0 L (0.7-5.8) Baso % (Auto) 0.1 (0.1-1.2) % Neut # (Auto) 12.28 H (1.56-6.13) K/mm3 Lymph # (Auto) 1.01 L (1.18-3.74) K/mm3 [place] # (Auto) 2.17 H (0.24-0.36) K/mm3 Eos # (Auto) 0.00 L (0.04-0.36) K/mm3 Baso # (Auto) 0.01 (0.01-0.08) K/mm3 Manual Slide Review Abnormal smear Sodium 138 (136-145) mEq/L Potassium 6.5 H* D (3.5-5.1) mEq/L Chloride 100 (98-107) mEq/L Carbon Dioxide 15 L D (21-32) mEq/L Anion Gap 29.5 H (5-15) BUN 75 H D (7-18) mg/dL Creatinine 3.8 H D (0.55-1.02) mg/dL Est Cr Clr Drug Dosing 9.52 mL/min Estimated GFR (MDRD) 11 (>60) mL/min BUN/Creatinine Ratio 19.7 H (14-18) Glucose 94 (83-115) mg/dL Calcium 9.5 (8.5-10.1) mg/dL Phosphorus (2.6-4.7) mg/dL Magnesium (1.8-2.4) mg/dl Total Bilirubin 1.1 H (0.2-1.0) mg/dL AST 51 H (15-37) U/L ALT 34 (14-59) U/L Alkaline Phosphatase 61 (46-116) U/L Troponin I 0.182 H* (0.00-0.056) ng/mL Total Protein 6.5 (6.4-8.2) g/dl Albumin 3.5 (3.4-5.0) g/dl Globulin 3.0 gm/dL Albumin/Globulin Ratio 1.2 (1-2) Urine Color (Yellow) Urine Appearance (Clear) Urine pH (5.0-8.0) Ur Specific [place] (1.005-1.030) Urine Protein (Negative) Urine Glucose (UA) (Negative) Urine Ketones (Negative) Urine Occult Blood (Negative) Urine Nitrite (Negative) Urine Bilirubin (Negative) Urine Urobilinogen (0.2-1.0) Ur Leukocyte Esterase (Negative) Urine RBC (0-5) /hpf Urine WBC (0-5) /hpf Ur Squamous Epith Cells (0-5) /hpf Amorphous Sediment (NOT SEEN) /hpf Urine Bacteria (FEW) /hpf Urine Mucus (FEW) /hpf Blood Type AB POSITIVE Gel Antibody Screen Negative Crossmatch See Detail 04/09/20 04/09/20 04/09/20 Range/Units 15:53 15:53 16:06 WBC (3.98-10.04) K/mm3 RBC (3.98-5.22) M/mm3 Hgb (11.2-15.7) gm/dl Hct (34.1-44.9) % MCV (79.4-94.8) fl MCH (25.6-32.2) pg MCHC (32.2-35.5) g/dl RDW Std Deviation (36.4-46.3) fL Plt Count (182-369) K/mm3 MPV (9.4-12.3) fl Neut % (Auto) (34.0-71.1) % Lymph % (Auto) (19.3-51.7) % [place] % (Auto) (4.7-12.5) % Eos % (Auto) (0.7-5.8) Baso % (Auto) (0.1-1.2) % Neut # (Auto) (1.56-6.13) K/mm3 Lymph # (Auto) (1.18-3.74) K/mm3 [place] # (Auto) (0.24-0.36) K/mm3 Eos # (Auto) (0.04-0.36) K/mm3 Baso # (Auto) (0.01-0.08) K/mm3 Manual Slide Review Sodium (136-145) mEq/L Potassium (3.5-5.1) mEq/L Chloride (98-107) mEq/L Carbon Dioxide (21-32) mEq/L Anion Gap (5-15) BUN (7-18) mg/dL Creatinine (0.55-1.02) mg/dL Est Cr Clr Drug Dosing mL/min Estimated GFR (MDRD) (>60) mL/min BUN/Creatinine Ratio (14-18) Glucose (83-115) mg/dL Calcium (8.5-10.1) mg/dL Phosphorus 8.7 H (2.6-4.7) mg/dL Magnesium 3.5 H (1.8-2.4) mg/dl Total Bilirubin (0.2-1.0) mg/dL AST (15-37) U/L ALT (14-59) U/L Alkaline Phosphatase (46-116) U/L Troponin I (0.00-0.056) ng/mL Total Protein (6.4-8.2) g/dl Albumin (3.4-5.0) g/dl Globulin gm/dL Albumin/Globulin Ratio (1-2) Urine Color Yellow (Yellow) Urine Appearance Slt cloudy H (Clear) Urine pH 5.0 (5.0-8.0) Ur Specific [place] > or = 1.030 (1.005-1.030) Urine Protein Negative (Negative) Urine Glucose (UA) Negative (Negative) Urine Ketones Negative (Negative) Urine Occult Blood Negative (Negative) Urine Nitrite Negative (Negative) Urine Bilirubin 1+ H (Negative) Urine Urobilinogen 1.0 (0.2-1.0) Ur Leukocyte Esterase 1+ H (Negative) Urine RBC 0-5 (0-5) /hpf Urine WBC 0-5 (0-5) /hpf Ur Squamous Epith Cells Not seen (0-5) /hpf Amorphous Sediment Few H (NOT SEEN) /hpf Urine Bacteria Moderate H (FEW) /hpf Urine Mucus Not seen (FEW) /hpf Blood Type Gel Antibody Screen Crossmatch 04/09/20 Range/Units 18:06 WBC (3.98-10.04) K/mm3 RBC (3.98-5.22) M/mm3 Hgb 8.5 L D (11.2-15.7) gm/dl Hct 29.4 L (34.1-44.9) % MCV (79.4-94.8) fl MCH (25.6-32.2) pg MCHC (32.2-35.5) g/dl RDW Std Deviation (36.4-46.3) fL Plt Count (182-369) K/mm3 MPV (9.4-12.3) fl Neut % (Auto) (34.0-71.1) % Lymph % (Auto) (19.3-51.7) % [place] % (Auto) (4.7-12.5) % Eos % (Auto) (0.7-5.8) Baso % (Auto) (0.1-1.2) % Neut # (Auto) (1.56-6.13) K/mm3 Lymph # (Auto) (1.18-3.74) K/mm3 [place] # (Auto) (0.24-0.36) K/mm3 Eos # (Auto) (0.04-0.36) K/mm3 Baso # (Auto) (0.01-0.08) K/mm3 Manual Slide Review Sodium (136-145) mEq/L Potassium (3.5-5.1) mEq/L Chloride (98-107) mEq/L Carbon Dioxide (21-32) mEq/L Anion Gap (5-15) BUN (7-18) mg/dL Creatinine (0.55-1.02) mg/dL Est Cr Clr Drug Dosing mL/min Estimated GFR (MDRD) (>60) mL/min BUN/Creatinine Ratio (14-18) Glucose (83-115) mg/dL Calcium (8.5-10.1) mg/dL Phosphorus (2.6-4.7) mg/dL Magnesium (1.8-2.4) mg/dl Total Bilirubin (0.2-1.0) mg/dL AST (15-37) U/L ALT (14-59) U/L Alkaline Phosphatase (46-116) U/L Troponin I (0.00-0.056) ng/mL Total Protein (6.4-8.2) g/dl Albumin (3.4-5.0) g/dl Globulin gm/dL Albumin/Globulin Ratio (1-2) Urine Color (Yellow) Urine Appearance (Clear) Urine pH (5.0-8.0) Ur Specific [place] (1.005-1.030) Urine Protein (Negative) Urine Glucose (UA) (Negative) Urine Ketones (Negative) Urine Occult Blood (Negative) Urine Nitrite (Negative) Urine Bilirubin (Negative) Urine Urobilinogen (0.2-1.0) Ur Leukocyte Esterase (Negative) Urine RBC (0-5) /hpf Urine WBC (0-5) /hpf Ur Squamous Epith Cells (0-5) /hpf Amorphous Sediment (NOT SEEN) /hpf Urine Bacteria (FEW) /hpf Urine Mucus (FEW) /hpf Blood Type Gel Antibody Screen Crossmatch Result Diagrams: 04/09/20 18:06 04/09/20 15:53 Sepsis Event Note - Evaluation Sepsis Screening Result: No Definite Risk - Focused Exam Vital Signs: Vital Signs Temp Pulse Resp BP Pulse Ox 04/09/20 15:41 36.4 C 59 L 20 99/46 L 97 Date Exam was Performed: 04/09/20 Time Exam was Performed: 18:39 *Q Meaningful Use (ADM) - VTE *Q VTE Pharmacological Contraindications *Q: Risk of Bleeding Consult PN Assessment/Plan Procedures: Procedures ANTINUCLEAR ANTIBODIES (03/03/17) ASSAY OF BLOOD/URIC ACID (03/03/17) ASSAY OF MAGNESIUM (07/23/14) ASSAY OF NATRIURETIC PEPTIDE (08/13/19) ASSAY OF PARATHORMONE (03/03/17) ASSAY OF PROTEIN URINE (03/03/17) ASSAY OF TROPONIN QUANT (08/13/19) ASSAY OF URINE CREATININE (03/03/17) ASSAY THYROID STIM HORMONE (07/23/14) BL SMEAR W/DIFF WBC COUNT (08/13/19) C-REACTIVE PROTEIN (04/18/19) CARDIAC REHAB/MONITOR (07/12/16) CARDIOVASCULAR STRESS TEST (07/23/14) CCP ANTIBODY (04/18/19) CHEST X-RAY 1 VIEW FRONTAL (12/01/15) COLONOSCOPY AND BIOPSY (01/01/14) COMPLEMENT ANTIGEN (03/03/17) COMPLETE CBC AUTOMATED (08/13/19) COMPLETE CBC W/AUTO DIFF WBC (04/18/19) COMPREHEN METABOLIC PANEL (08/13/19) CT ABD & PELVIS W/O CONTRAST (08/30/18) CT NECK SPINE W/O DYE (04/18/19) CULTURE AEROBIC IDENTIFY (12/11/14) DRAIN/INJ JOINT/BURSA W/O US (01/29/14) DXA BONE DENSITY AXIAL (07/15/15) EGD BIOPSY SINGLE/MULTIPLE (01/01/14) ELECTROCARDIOGRAM TRACING (08/13/19) EMERGENCY DEPT VISIT (08/13/19) EMERGENCY DEPT VISIT (04/18/19) EMERGENCY DEPT VISIT (08/30/18) EXTREMITY STUDY (08/20/19) FLUORESCENT ANTIBODY TITER (03/03/17) GLYCOSYLATED HEMOGLOBIN TEST (07/23/14) HT MUSCLE IMAGE SPECT MULT (07/23/14) HYDRATE IV INFUSION ADD-ON (08/30/18) IMMUNOASSAY NONANTIBODY (03/03/17) INCISE FINGER TENDON SHEATH (07/20/17) INSERT TEMP BLADDER CATH (08/30/18) LIPID PANEL (07/23/14) MICROBE SUSCEPTIBLE [place] (12/11/14) MR-STAPH DNA AMP PROBE (07/20/17) NEEDLE LOCALIZATION BY XRAY (01/29/14) PROTEIN E-PHORESIS SERUM (03/03/17) PROTHROMBIN TIME (07/20/17) RBC SED RATE AUTOMATED (04/18/19) RENAL FUNCTION PANEL (03/03/17) REVISE HAND/FOOT NERVE (08/03/15) RHEUMATOID FACTOR TEST QUAL (04/18/19) ROUTINE VENIPUNCTURE (08/13/19) THER/PROPH/DIAG INJ IV PUSH (08/13/19) THER/PROPH/DIAG IV INF ADDON (12/03/13) THER/PROPH/DIAG IV INF INIT (12/03/13) THROMBOPLASTIN TIME PARTIAL (12/01/15) TX/PRO/DX INJ NEW DRUG ADDON (08/30/18) URINALYSIS AUTO W/SCOPE (08/30/18) URINE BACTERIA CULTURE (12/11/14) VITAMIN D 25 HYDROXY (03/03/17) X-RAY EXAM ABDOMEN 2 VIEWS (08/30/18) X-RAY EXAM CHEST 2 VIEWS (08/13/19) X-RAY EXAM OF FOREARM (03/28/14) X-RAY EXAM OF WRIST (03/28/14) Problem List Initiated/Reviewed/Updated: Yes Plan: GI bleed in elderly, frail [facility] patient who takes xarelto and aspirin. Based on patient's history, complaint of epigastric pain, and melena, the source is presumably from the stomach. Recommendations: -hold xarelto and aspirin. -agree with plan for serial Hgb/Hct checks in ICU setting. -check aPTT and PT/INR; if PT is elevated and there is evidence of ongoing bleeding, the patient may benefit from Vitamin K. -agree with PPI therapy for presumed UGI bleed. -in addition to pRBC transfusion, recommend FFP given patient is taking factor Xa inhibitor if patient needs additional volume. The patient is high risk for volume overload given her congestive heart failure and renal insufficiency. -the patient is on relatively high-dose xarelto and has renal insufficiency, so drug clearance may take days, and ongoing prudent resuscitation with blood products may be required. -if patient remains hemodynamically stable in ICU, recommend trial of trophic PO nutrition starting tomorrow. -So long as the patient remains hemodynamically stable and responds well to balanced volume resuscitation, it would be better to avoid any procedure requiring anesthesia, including endoscopy, as often times the bleeding is self- limited once the coagulopathy is corrected. The patient is high risk for undergoing any procedure, including risk of aspiration, OH, and . I will plan to discuss goals of care with the patient's family in the case that she becomes unstable despite appropriate medical management. Requesting Provider: Koko Date Consult Requested: 04/09/20 Reason for Consult: GI bleed Patient History Reviewed: Yes Time Spent (in minutes): 45
--- NOTE | 2020-04-09 18:51 | CT ---
CT chest and abdomen Technique: Multiple axial sections were obtained from above the lung apices inferiorly through the lung bases and inferiorly through the abdomen to the iliac bifurcation and iliac wing. Intravenous contrast was utilized. Study performed as an aortogram exam. Findings: Atherosclerotic calcification noted within the thoracic aorta. No aneurysm or dissection is seen. Opacified pulmonary arteries show no filling defects of pulmonary embolism. Heart is enlarged. Mediastinum shows several lymph nodes which are believed to be within normal limits. No axillary adenopathy is seen. Small bilateral pleural effusions are seen. Haziness is noted within both lungs raising the possibility of pulmonary vascular congestion. Atelectasis is seen within the right lower lung and within the right middle lung as well as mild atelectasis adjacent to the pleural effusions. Small 3 mm nodule within the right lung base and small 5 mm nodule within the left lung base is noted. Bone window settings were reviewed which shows mild degenerative change scattered throughout the spine. No acute osseous finding is appreciated. Several old left-sided rib fractures are noted which appear healed. Impression: 1. No findings of thoracic aneurysm or dissection or pulmonary embolism. 2. Findings as described above suspicious for CHF. 3. Small nodule within each lung base. These are most likely incidental. Diagnostic code #3 This report was dictated in MDT I agree with preliminary report from [facility], finalized on default 04/09/20, 7:18 PM [place] Day[place] Time CT abdomen Comparison: Prior CT abdomen and pelvis studies of 02/05/09 and 08/30/18 Technique: Multiple axial sections from above the dome of the diaphragm inferiorly to the iliac crest. Intravenous contrast was utilized as an aortogram exam. Atherosclerotic change is noted within the abdominal aorta without dissection or aneurysm. Atherosclerotic change is noted within the branch vessels. No definite hemodynamic significant stenosis is seen with the SMA or celiac axis or within the renal arteries. Inferior mesenteric artery is partially visualized. Liver contains no focal abnormality. Spleen appears within normal limits. Nodule is noted within the left adrenal gland measuring 3.3 cm. Right adrenal gland is unremarkable. Pancreas shows no discrete abnormality. No retroperitoneal adenopathy is seen. Kidneys show no abnormal calcifications or hydronephrosis. Bone window settings were reviewed which shows degenerative change within the lumbar spine. Impression: 1. No abdominal aortic aneurysm or dissection. Atherosclerotic change is noted within the aorta and branch vessels. 2. Left adrenal nodule measuring 3.3 cm. Nodule is noted on prior CT exam but findings have increased in size with nodule previously measuring 2.2 cm. Difficult to exclude malignant adrenal nodule. 3. Other nonacute findings as noted above. Diagnostic code #9 This report was dictated in MDT I mostly agree with preliminary report from [facility] (additional finding of left adrenal nodule measuring 3.3 cm as described above), finalized on 04/09/20, 7:18 PM Central Daylight Time, code 2
--- NOTE | 2020-04-09 18:55 | PCM.HP.2 ---
H&P History of Present Illness - General Date of Service: 04/09/20 Admit Problem/Dx: Admission Diagnosis/Problem Admission Diagnosis/Problem Bleeding - History of Present Illness Initial Comments - Free Text/Narative: This is [id number] woman with past medical history of coronary artery disease, on a baby aspirin, and atrial fibrillation, on Xarelto and metoprolol, who is now brought to the ED from her residence at [facility], with a report that she had neck pain and dyspnea since the weekend, and that she developed upper abdominal pain today. She denies vomiting or diarrhea. According to the patient's daughter, she has not had similar symptoms in the past. Of note she has not been eating well for the past few days. Neck Pain Score (Numeric/FACES): 4 Bilateral Abdominal Pain Score (Numeric/FACES): 7 - Related Data Allergies/Adverse Reactions: Allergies Allergy/AdvReac Type Severity Reaction Status Date / Time estrogens, conjugated Allergy Burning Verified 08/13/19 08:37 dextromethorphan AdvReac Hyperactivi Verified 08/13/19 08:37 ty diphenhydramine HCl AdvReac Hyperactivi Verified 08/13/19 08:37 [From Benadryl] ty prednisone AdvReac Hypertensio Verified 04/09/20 16:16 n pseudoephedrine AdvReac Hyperactivi Verified 08/13/19 08:37 ty Home Medications: Home Meds Acetaminophen [Tylenol Arthritis Pain] 650 mg PO Q6HR PRN 12/03/13 [History] Isosorbide Mononitrate [Imdur] 120 mg PO DAILY 12/03/13 [History] amLODIPine Besylate [Amlodipine Besylate] 5 mg PO DAILY 12/03/13 [History] Rosuvastatin [Crestor] 20 mg PO DAILY 07/24/14 [History] Chlorthalidone 25 mg PO DAILY PRN 11/07/14 [History] Donepezil HCl [Aricept] 10 mg PO DAILY 07/19/17 [History] Metoprolol Tartrate [Lopressor] 25 mg PO BID 07/19/17 [History] Multivitamin [Poly-Vitamin] 1 tab PO DAILY 07/19/17 [History] traMADol HCl [Ultram] 50 - 100 mg PO Q6H PRN #10 tablet 07/20/17 [Rx] Aspirin [Halfprin] 81 mg PO DAILY 04/18/19 [History] Cholecalciferol (Vitamin D3) [Vitamin D3] 1,000 unit PO DAILY 04/18/19 [History] Cyanocobalamin (Vitamin B-12) [Vitamin B12] 2,500 mcg PO DAILY 04/18/19 [History] Cyclobenzaprine [Flexeril] 5 mg PO TID PRN 04/18/19 [History] Diclofenac Sodium [Voltaren 1% Gel] 1 applic TOP ASDIRECTED PRN 04/18/19 [ History] Ferrous Sulfate [Feosol] 325 mg PO BID 04/18/19 [History] Folic Acid 1 mg PO DAILY 04/18/19 [History] Ipratropium [place] 2 spray INH TID 04/18/19 [History] Levothyroxine 25 mcg PO DAILY 04/18/19 [History] Loperamide HCl [Imodium A-D] 2 mg PO ASDIRECTED PRN 04/18/19 [History] Loratadine 10 mg PO DAILY 04/18/19 [History] Losartan [Cozaar] 50 mg PO BID 04/18/19 [History] Methyl Salicylate/Menthol [Salonpas Patch] 1 patch TOP ASDIRECTED 04/18/19 [History] Rivaroxaban [Xarelto] 15 mg PO DAILY 04/18/19 [History] Sodium Chloride [Saline Nasal Mist] 2 spray INH ASDIRECTED PRN 04/18/19 [Histo ry] Furosemide [Lasix] 20 mg PO DAILY #10 tab 08/13/19 [Rx] Potassium Chloride [Klor-Con 10] 10 meq PO DAILY #10 tablet.er 08/13/19 [Rx] Ubidecarenone [Coenzyme Q10] 1 tab PO DAILY 08/13/19 [History] Past Medical History HEENT History: Reports: Allergic Rhinitis, Impaired Vision (wears glasses), Other (See Below) (Upper dentures) Other HEENT History: upper denture, wears glasses Cardiovascular History: Reports: Afib, CAD, Heart Failure, High Cholesterol, Hypertension, [place], Stents Other Cardiovascular History: venous insufficiency, ACSCVD, cehst pain, chest wall contusion, peripheral vascular disease, edema Respiratory History: Reports: SOB Gastrointestinal History: Reports: Colon Polyp, Gastritis, Hemorrhoids Other Gastrointestinal History: esophagitis, RUQ apin Genitourinary History: Reports: Chronic Renal Insuffiency Other Genitourinary History: frequency 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: , Other (See Below) Other OB/BYN History: [place] Musculoskeletal History: Reports: Back Pain, Chronic (Spinal stenosis) Other Musculoskeletal History: trigger finger release R 4th, arthrocentesis R shoulder and R hip, back surgery, spinal stenosis, neck pain, discetomy, buldged disc to neck, pinched nerve Neurological History: Reports: Alzheimers Disease Psychiatric History: Reports: Other (See Below) (Insomnia) Other Psychiatric History: insomnia Endocrine/Metabolic History: Reports: None Hematologic History: Reports: Anemia, Iron Deficiency Immunologic History: Reports: None Oncologic (Cancer) History: Reports: None Dermatologic History: Reports: Other (See Below) Other Dermatologic History: dernatitis, lipoma, seborrheic keratosis, roascea - Past Surgical History HEENT Surgical History: Reports: Cataract Surgery GI Surgical History: Reports: Appendectomy, Cholecystectomy, Colonoscopy, EGD, Other (See Below) (Hemorrhoidectomy) Female Surgical History: Reports: Hysterectomy Neurological Surgical History: Reports: C-Spine (fusion), Lumbar Spine Musculoskeletal Surgical History: Reports: Other (See Below) (Right 4th trigger finger release) Social & Family History - Family History Family Medical History: Noncontributory - Tobacco Use Smoking Status *Q: Former Smoker Years of Tobacco use: 41 Packs/Tins Daily: 2 Month/Year Tobacco Last Used: Quit 1994 - Caffeine Use Caffeine Use: Reports: None - Recreational Drug Use Recreational Drug Use: No - Living Situation & Occupation Living situation: Reports: , with Spouse, Assisted Living ([facility]) Occupation: Retired H&P Review of Systems - Review of Systems: Review Of Systems: Unable To Obtain Reason Not Obtained: patient too unstable during my evaluation Exam - Exam Exam: See Below - Vital Signs Vital Signs: Last Vital Signs Temp 97.6 F 04/09/20 15:41 Pulse 59 L 04/09/20 15:41 Resp 20 04/09/20 15:41 BP 99/46 L 04/09/20 15:41 Pulse Ox 97 04/09/20 15:41 Weight: 62.596 kg - Exam General: Cooperative, Moderate Distress, Lethargic HEENT: Conjunctiva Clear, Nares Patent, Pupils Equal (pin point), Abnormal Pupils (pin point). No: Hearing Intact, Mucosa Moist & [place] Neck: Supple, Trachea Midline, +2 Carotid Pulse wo Bruit. No: Lymphadenopathy Lungs: Clear to Auscultation, Decreased Breath Sounds, Crackles. No: Rales, Rhonchi, Rub, Stridor, Wheezing Cardiovascular: Regular Rate, Regular Rhythm. No: Systolic Murmur, Diastolic Murmur, Rubs, Gallop/S3, Gallop/S4 GI/Abdominal Exam: Normal Bowel Sounds, Soft, No Distention, Guarding, Tender. No: Rigid, Rebound Extremities: No Pedal Edema, Slow Capillary Refill Peripheral Pulses: 2+: Radial (L), Radial (R) Skin: Dry, Intact, Cool - Patient Data Result Diagrams: 04/09/20 18:06 04/09/20 15:53 Sepsis Event Note - Evaluation Sepsis Screening Result: No Definite Risk - Focused Exam Vital Signs: Vital Signs Temp Pulse Resp BP Pulse Ox 04/09/20 15:41 97.6 F 59 L 20 99/46 L 97 Date Exam was Performed: 04/09/20 Time Exam was Performed: 19:54 - Problem List (1) Hemorrhagic shock SNOMED Code(s): 877100 ICD Code: R57.8 - OTHER SHOCK Status: Acute Current Visit: Yes (2) Hypotension due to blood loss SNOMED Code(s): 65293809 ICD Code: I95.89 - OTHER HYPOTENSION Status: Acute Current Visit: Yes (3) Severe anemia SNOMED Code(s): 054290474 ICD Code: D64.9 - ANEMIA, UNSPECIFIED Status: Acute Current Visit: Yes (4) Upper GI bleed SNOMED Code(s): 58995891 ICD Code: K92.2 - GASTROINTESTINAL HEMORRHAGE, UNSPECIFIED Status: Acute Current Visit: Yes (5) Elevated troponin level not due to acute coronary syndrome SNOMED Code(s): 190376745, 902651875, 786370629 ICD Code: R79.89 - OTHER SPECIFIED ABNORMAL FINDINGS OF BLOOD CHEMISTRY Status: Acute Current Visit: Yes (6) Hemorrhoids SNOMED Code(s): 33282045 ICD Code: K64.9 - UNSPECIFIED HEMORRHOIDS Status: Acute Current Visit: Yes (7) Acute kidney injury SNOMED Code(s): 52961641, 40855023 ICD Code: N17.9 - ACUTE KIDNEY FAILURE, UNSPECIFIED Status: Acute Current Visit: Yes (8) Chronic kidney disease (CKD), stage III (moderate) SNOMED Code(s): 057093882 ICD Code: N18.3 - CHRONIC KIDNEY DISEASE, STAGE 3 (MODERATE) Status: Acute Current Visit: Yes (9) High anion gap metabolic acidosis SNOMED Code(s): 21528992 ICD Code: E87.2 - ACIDOSIS Status: Acute Current Visit: Yes (10) Hyperkalemia SNOMED Code(s): 55416893 ICD Code: E87.5 - HYPERKALEMIA Status: Acute Current Visit: Yes (11) Hypermagnesemia SNOMED Code(s): 78764579 ICD Code: E83.41 - HYPERMAGNESEMIA Status: Acute Current Visit: Yes (12) Hyperphosphatemia SNOMED Code(s): 73037670 ICD Code: E83.39 - OTHER DISORDERS OF PHOSPHORUS METABOLISM Status: Acute Current Visit: Yes (13) Atrial fibrillation SNOMED Code(s): 19122856 ICD Code: I48.91 - UNSPECIFIED ATRIAL FIBRILLATION Status: Acute Current Visit: Yes (14) Chronic anticoagulation SNOMED Code(s): 710834287 ICD Code: Z79.01 - [facility] (CURRENT) USE OF ANTICOAGULANTS Status: Acute Current Visit: Yes (15) Hypertension SNOMED Code(s): 90802057 ICD Code: I10 - ESSENTIAL (PRIMARY) HYPERTENSION Status: Acute Current Visit: Yes (16) Systolic heart failure secondary to coronary artery disease SNOMED Code(s): 233820317 ICD Code: I50.20 - UNSPECIFIED SYSTOLIC (CONGESTIVE) HEART FAILURE; I25.10 - ATHSCL HEART DISEASE OF [place] CORONARY ARTERY W/O ANG PCTRS Status: Acute Current Visit: Yes (17) Stented coronary artery Status: Acute Current Visit: Yes (18) Alzheimer's dementia SNOMED Code(s): 33545866 ICD Code: G30.9 - ALZHEIMER'S DISEASE, UNSPECIFIED; F02.80 - DEMENTIA IN OTH DISEASES CLASSD ELSWHR W/O BEHAVRL DISTURB Status: Acute Current Visit: Yes (19) Former smoker SNOMED Code(s): 0125688 ICD Code: Z87.891 - PERSONAL HISTORY OF NICOTINE DEPENDENCE Status: Acute Current Visit: Yes (20) Chronic neck pain SNOMED Code(s): 3509231703876 ICD Code: M54.2 - CERVICALGIA; G89.29 - OTHER CHRONIC PAIN Status: Acute Current Visit: No (21) Polypharmacy SNOMED Code(s): 275841367 ICD Code: Z79.899 - OTHER [facility] (CURRENT) DRUG THERAPY Status: Acute Current Visit: Yes Problem List Initiated/Reviewed/Updated: Yes Assessment/Plan Comment:: ASSESSMENT - Came in complaining of neck pain and SOB x 5 days associated with abdominal pain today - No vomiting or diarrhea - In ED BP is found to be low, with bradycardia - On examination, she complained of epigastric abdominal tenderness, and on rectal exam, she had black stool that was grossly heme positive - Case discussed with surgery who did not recommend emergent EGD - Lab results - H/H at 5.7/21.2, and her BP went down to 49/28. - ER gave 500mL bolus of LR - Transfused 2u PRBCs - Requested 2u FFP - Given K centra - WBC count 15.50 and platelets of 405,000. - Potassium 6.5, bicarbonate 15, anion gap 29.5, GFR 11 - Prior labs from 08/2019 with GFR 30, normal electrolytes and no gap - Troponin is 0.182. - Normal UA - Upon my evaluation patient's blood pressure continued to decline, 99/46-->83/41-->63/32-->61/30 - Patient still complaining of severe abdominal pain --> CTA to r/o aortic dissection --> ruled out - Since BP continued to drop regarding IVF and blood transfusion --> Central line placed and started on norepinephrine PLAN Hemorrhagic shock Severe anemia 2/2 acute upper GI bleed Elevated troponin level 2/2 type II [place] Hemorrhoids - Transfuse 2u PRBCs - Protonix 40mg IV BID - Trend Hb/Hct every 4 hours - Goal Hb >8 - Kcentra now 2K units - FFP x 2 - Consult surgery - Central line insertion - Start Levophed - Insert NG tube Acute on chronic kidney disease, stage III High anion gap metabolic acidosis Hyperkalemia/Hypermagnesemia/Hyperphosphatemia - EKG - Insert Evans catheter - Monitor urine output - Renally dosed medications - Repeat labs in AM Atrial fibrillation Chronic anticoagulation - Hold Xarelto and ASA - Gold home medications Hypertension - Hold home medications until BP stable and patient is not bleeding Systolic heart failure secondary to coronary artery disease Stented coronary artery - Goal Hb >8 - Request prior echocardiogram Alzheimer's dementia - Let me sleep protocol Chronic neck pain - Home pain management Polypharmacy - Reconcile and discontinue as per BEERS criteria PROPHYLAXIS DVT- compression stockings, pharmacologic contraindicated GI- Scheduled Protonix CODE STATUS: DNR/DNI DISPOSITION: Patient will be admitted to ICU for close monitorization of hemodynamic status, trending hemoglobin and stabilization. - Mortality Measure Prognosis:: Poor Central Line - Central Line Insertion Central Line Indication: medication administration Site: internal jugular (R) Prep: CDC/MBT Guidelines, Sterile Drapes, Chlorhexidine Lumen: triple Gauge: 7Fr Local Anesthesia - Lidocaine (Xylocaine): 1% Plain Local Anesthetic Volume: 5cc Ultrasound guided: Yes Guidewire and dilator removed intact: Yes Micropuncture kit used: Yes Secured with suture: Yes Complications: No Post placement confirmation: CXR, all ports aspirated, all ports flushed CXR post-procedure: No: no pneumothorax, no hemothorax Dressing applied: by provider
--- NOTE | 2020-04-09 18:55 | PCM.PRNOTE ---
- Free Text/Narrative Note: Central Venous Catheter Placement Date: 04/09/20 Indication: Need for vasopressors Attending: Patricia Sutherland MD A time-out was completed verifying correct patient, procedure, site, positioning, and special equipment if applicable. The patient was placed in a dependent position appropriate for central line placement based on the vein to becannulated. The patients right neck was prepped and draped in sterile fashion. 1%Lidocainewas used to anesthetize the surrounding skin area. A triple lumen 7-FrenchCordiscatheter was introduced into the the right internal jugular using the Seldingertechnique and under ultrasound guidance. The catheter was threaded smoothly over the guide wire and appropriate blood return was obtained. Each lumen of the catheter was evacuated of air and flushed with sterile saline. The catheter was then sutured in place to the skin and a sterile dressing applied. Perfusion to the extremity distal to the point of catheter insertion was checked and found to be adequate. Estimated Blood Loss: 5mL The patient tolerated the procedure well and there were no complications.
[2020-04-09] MEDS ORDERED: Pantoprazole 40 MG in Sodium Chloride 0.9% 100 ML IV SCH (21:00)
[2020-04-09] MEDS ORDERED: QUEtiapine 25 MG Tab PO ONE (21:07)
[2020-04-09] MEDS ORDERED: Pantoprazole 40 MG Vial ONE (21:17)
[2020-04-09] MEDS ORDERED: Haloperidol Lactate 5 MG/ML SDV IVPUSH ONE (22:12)
[2020-04-09] MEDS ORDERED: Morphine 2 MG/ML SYRINGE IVPUSH ONE (22:48)
[2020-04-09] MEDS: Lactated Ringers 1,000 ML IV SCH (23:16)
[2020-04-09] MEDS ORDERED: Norepinephrine 4 MG/4 ML SDV ONE (23:38)
[2020-04-10] MEDS ORDERED: Morphine 2 MG/ML SYRINGE IVPUSH ONE (04:40)
[2020-04-10] MEDS: Norepinephrine 4 MG in Dextrose 5% in Water 246 ML IV SCH ×6 (04:43→13:39)
[2020-04-10] MEDS: Lactated Ringers 1,000 ML IV SCH ×2 (05:57→12:38)
--- NOTE | 2020-04-10 08:10 | PCM.SN.2 ---
- Free Text/Narrative Note: Surgical Consult Note HD 2, frail elderly woman with CHF, CKD, Afib who takes xarelto and aspirin, admitted with hypotension, abdominal pain and anemia with evidence of GI bleed. Overnight, no additional blood products were administered and Hgb has been relatively stable in the 8-9 g/dL range. The patient is on a norepinephrine infusion with systolic BP this morning of 110 mm Hg. NG placement was attempted and aborted due to resistance from the patient. S: restless. No emesis. Small dark bowel movement x 1 overnight. O: AF- HR 70s, BP 90s/50s, RR 20 with SPO2 >95% on 3 L NC. Intake about 1.8 L, total output consists of urine ~80 cc overnight. Awake, confused, pale-appearing Abdomen tender, not distended. Right subcostal incision from prior open cholecystectomy Skin cool, dry. BLE pitting edema No new labs aside from serial H/H overnight. Labs in ER concerning for hyperkalemia 6.5 in patient with evidence of renal failure and minimal urine output overnight. A: GI bleed in patient with serious comorbidities taking aspirin and xarelto. Though Hgb has been relatively stable overnight she remains hypotensive on norepinephrine infusion with current rate of 15 mcg/m with crystalloid infusing at 150 cc/hr. P: I discussed prognosis and option of therapeutic endoscopy with family yesterday. We are in agreement that, only if the patient is unstable with signs of active hemorrhage would we attempt endoscopy, which would be very high risk for precipitating a terminal event such as aspiration or MS. Written consent is in the patient's chart. The patient presented with evidence of hemorrhagic shock, likely from gastritis. I recommend cautious volume replacement with blood products with use of diuretics in order to avoid volume overload and CHF exacerbation, rather than pressors which I think should be stopped as soon as possible. If the patient is not vomiting or showing signs of obstruction I do not think NG tube placement is necessary. If the patient can be weaned off pressor support and Hgb remains fairly stable, I recommend starting enteral nutrition. I recommend repeating a full set of labs now, including BMP given the patient's hyperkalemia on arrival. If she is not producing urine and her creatinine, BUN, potassium remain elevated I worry that the patient has impending need for dialysis. If her abdominal tenderness persists as well as her white count, a noncontrast CT scan of the abdomen and pelvis may be of use.
[2020-04-10] MEDS ORDERED: Furosemide 40 MG/4 ML VIAL IVPUSH ONE ×2 (08:25→09:30)
[2020-04-10] MEDS ORDERED: Pantoprazole 40 MG Vial IVPUSH SCH (09:00)
[2020-04-10] MEDS ORDERED: Sodium Chloride 0.9% 250 ML IV SCH (10:15)
--- NOTE | 2020-04-10 12:48 | CR ---
Chest: Portable view of the chest was obtained. Comparison: Prior chest x-ray of 11/30/15. Heart is enlarged. Small left-sided pleural effusion is seen. Left basilar atelectasis or even pneumonia is possible. Pulmonary vessels are congested. Previous cervical spine surgery is noted. Scoliosis is noted within the spine. Right-sided jugular line is seen. Tip lies within the right atria. Impression: 1. Findings felt compatible with CHF. 2. Parenchymal density within left base either due to atelectasis and/or pneumonia. 3. Other findings believed to be incidental as described above. Diagnostic code #3 This report was dictated in MDT
[2020-04-10] MEDS ORDERED: Morphine 2 MG/ML SYRINGE IVPUSH PRN ×2 (12:50→14:49)
--- NOTE | 2020-04-10 13:23 | PCM.SN.2 ---
- Free Text/Narrative Note: Interval events: Most recent labs show increased Hgb of 8.7 g/dL prior to infusion of pRBC. As one unit of pRBC began to infuse this afternoon, the patient became more hypoxic. An ABG shows acidosis with pH 7.28, hypoxemia, without effective compensatory respiratory alkalosis. Chest X-ray shows evidence of pulmonary edema. Her urine output remains marginal, 20-30 cc/hr, without increase after administration of IV lasix. Her potassium is 5 and creatinine stable at 3.5. The patient's abdominal tenderness persists, and blood pressure is now around 90/50 still on the same dose of norepinephrine. She had one loose bowel movement this shift without gross evidence of blood. Urinalysis on arrival shows positive leukocyte esterase and initial culture results show gram negative rods, raising concern for urosepsis. The patient shows evidence of multiple organ system failure and remains hypotensive on pressors, without evidence of ongoing hemorrhage. I worry about CHF exacerbation with the volume she has received, about her advanced degree of renal failure, impending respiratory failure, abdominal pain on pressors which may be contributing to mesenteric ischemia, and evidence of possible underlying sepsis. The patient's prognosis is very poor. I recommend starting antibiotics for UTI, obtaining a noncontrast CT of the abdomen and pelvis to try to rule out ischemic gut if hypotension and abdominal pain persist, minimizing additional IV fluids, and discussion with family about prognosis and goals of care.
--- NOTE | 2020-04-10 13:34 | PCM.PN ---
- General Info Date of Service: 04/10/20 Subjective Update: Was significantly agitated with altered mental status throughout the night Nursing was unable to place NG tube Ativan did not relieve symptoms Complained of abdominal pain, was able to sleep once she was given morphine 2 large black bowel movements overnight - Patient Data Vitals - Most Recent: Last Vital Signs Temp 97.1 F 04/10/20 10:36 Pulse 59 L 04/09/20 15:41 Resp 29 H 04/10/20 13:00 BP 86/49 L 04/10/20 13:00 Pulse Ox 97 04/10/20 13:00 Weight - Most Recent: 67.767 kg - Exam General: Alert, Cooperative, Mild Distress, Moderate Distress HEENT: Pupils Equal, Pupils Reactive, EOMI. No: Mucous Membr. Moist/[place] (pale and dry) Neck: Supple, Trachea Midline, No JVD, No Thyromegaly, Carotid Bruit. No: Lymphadenopathy Lungs: Decreased Breath Sounds, Crackles. No: Rales, Rhonchi, Rub, Stridor, Wheezing Cardiovascular: Regular Rate, Regular Rhythm. No: Murmurs, Gallops, Rubs GI/Abdominal Exam: Normal Bowel Sounds, Distended, Guarding, Tender. No: Rigid, Rebound Extremities: Non-Tender, No Pedal Edema, Slow Capillary Refill Peripheral Pulses: 1+: Brachial (L), Brachial (R) Skin: Dry, Intact, Cool Neurological: No New Focal Deficit Sepsis Event Note - Evaluation Sepsis Screening Result: No Definite Risk - Problem List & Annotations (1) Hemorrhagic shock SNOMED Code(s): 293639 Code(s): R57.8 - OTHER SHOCK Status: Acute Current Visit: Yes (2) Hypotension due to blood loss SNOMED Code(s): 96851807 Code(s): I95.89 - OTHER HYPOTENSION Status: Acute Current Visit: Yes (3) Severe anemia SNOMED Code(s): 365103088 Code(s): D64.9 - ANEMIA, UNSPECIFIED Status: Acute Current Visit: Yes (4) Upper GI bleed SNOMED Code(s): 95736983 Code(s): K92.2 - GASTROINTESTINAL HEMORRHAGE, UNSPECIFIED Status: Acute Current Visit: Yes (5) Elevated troponin level not due to acute coronary syndrome SNOMED Code(s): 599180733, 703041339, 021905640 Code(s): R79.89 - OTHER SPECIFIED ABNORMAL FINDINGS OF BLOOD CHEMISTRY Status: Acute Current Visit: Yes (6) Hemorrhoids SNOMED Code(s): 73658803 Code(s): K64.9 - UNSPECIFIED HEMORRHOIDS Status: Acute Current Visit: Yes (7) Acute kidney injury SNOMED Code(s): 02659201, 27995997 Code(s): N17.9 - ACUTE KIDNEY FAILURE, UNSPECIFIED Status: Acute Current Visit: Yes (8) Chronic kidney disease (CKD), stage III (moderate) SNOMED Code(s): 998623401 Code(s): N18.3 - CHRONIC KIDNEY DISEASE, STAGE 3 (MODERATE) Status: Acute Current Visit: Yes (9) High anion gap metabolic acidosis SNOMED Code(s): 05502580 Code(s): E87.2 - ACIDOSIS Status: Acute Current Visit: Yes (10) Hyperkalemia SNOMED Code(s): 94075923 Code(s): E87.5 - HYPERKALEMIA Status: Acute Current Visit: Yes (11) Hypermagnesemia SNOMED Code(s): 92763402 Code(s): E83.41 - HYPERMAGNESEMIA Status: Acute Current Visit: Yes (12) Hyperphosphatemia SNOMED Code(s): 34596603 Code(s): E83.39 - OTHER DISORDERS OF PHOSPHORUS METABOLISM Status: Acute Current Visit: Yes (13) Atrial fibrillation SNOMED Code(s): 86806613 Code(s): I48.91 - UNSPECIFIED ATRIAL FIBRILLATION Status: Acute Current Visit: Yes (14) Chronic anticoagulation SNOMED Code(s): 964119039 Code(s): Z79.01 - FPC (CURRENT) USE OF ANTICOAGULANTS Status: Acute Current Visit: Yes (15) Hypertension SNOMED Code(s): 68385857 Code(s): I10 - ESSENTIAL (PRIMARY) HYPERTENSION Status: Acute Current Visit: Yes (16) Systolic heart failure secondary to coronary artery disease SNOMED Code(s): 629008639 Code(s): I50.20 - UNSPECIFIED SYSTOLIC (CONGESTIVE) HEART FAILURE; I25.10 - ATHSCL HEART DISEASE OF [place] CORONARY ARTERY W/O ANG PCTRS Status: Acute Current Visit: Yes (17) Stented coronary artery Status: Acute Current Visit: Yes (18) Alzheimer's dementia SNOMED Code(s): 12358744 Code(s): G30.9 - ALZHEIMER'S DISEASE, UNSPECIFIED; F02.80 - DEMENTIA IN OTH DISEASES CLASSD ELSWHR W/O BEHAVRL DISTURB Status: Acute Current Visit: Yes (19) Former smoker SNOMED Code(s): 7791823 Code(s): Z87.891 - PERSONAL HISTORY OF NICOTINE DEPENDENCE Status: Acute Current Visit: Yes (20) Chronic neck pain SNOMED Code(s): 8547279013416 Code(s): M54.2 - CERVICALGIA; G89.29 - OTHER CHRONIC PAIN Status: Acute Current Visit: No (21) Polypharmacy SNOMED Code(s): 181268420 Code(s): Z79.899 - OTHER YARD BRAKEMAN (CURRENT) DRUG THERAPY Status: Acute Current Visit: Yes (22) Iron deficiency SNOMED Code(s): 80498848 Code(s): E61.1 - IRON DEFICIENCY Status: Acute Current Visit: Yes (23) Hyponatremia SNOMED Code(s): 76888615 Code(s): E87.1 - HYPO-OSMOLALITY AND HYPONATREMIA Status: Acute Current Visit: Yes (24) Oliguria SNOMED Code(s): 25793453 Code(s): R34 - ANURIA AND OLIGURIA Status: Acute Current Visit: Yes - Problem List Review Problem List Initiated/Reviewed/Updated: Yes - Assessment Assessment:: 04/09/20 - Came in complaining of neck pain and SOB x 5 days associated with abdominal pain today - No vomiting or diarrhea - In ED BP is found to be low, with bradycardia - On examination, she complained of epigastric abdominal tenderness, and on rectal exam, she had black stool that was grossly heme positive - Case discussed with surgery who did not recommend emergent EGD - Lab results - H/H at 5.7/21.2, and her BP went down to 49/28. - ER gave 500mL bolus of LR - Transfused 2u PRBCs - Requested 2u FFP - Given K centra - WBC count 15.50 and platelets of 405,000. - Potassium 6.5, bicarbonate 15, anion gap 29.5, GFR 11 - Prior labs from 08/2019 with GFR 30, normal electrolytes and no gap - Troponin is 0.182. - Normal UA - Upon my evaluation patient's blood pressure continued to decline, 99/46-->83/41-->63/32-->61/30 - Patient still complaining of severe abdominal pain --> CTA to r/o aortic dissection --> ruled out - Since BP continued to drop regarding IVF and blood transfusion --> Central line placed and started on norepinephrine PLAN - Transfuse 2u PRBCs - Protonix 40mg IV BID - Trend Hb/Hct every 4 hours - Goal Hb >8 - Kcentra now 2K units - FFP x 2 - Consult surgery - Central line insertion - Start Levophed - Insert NG tube - Insert Evans catheter - Hold Xarelto and ASA - Gold home medications - Admitted to ICU for close monitorization of hemodynamic status, trending hemoglobin and stabilization. 04/10/20 - Significantly agitates and confused overnight, did not respond to Ativan or Haldol - Complaining of severe abdominal pain--> given morphine which resolved pain and patient finally fell asleep - VS trend - MAP: 51-76 - HR: 61-76 - Tmax: 97.6 - SatO2 > 86% - New lab results - Hb up from 3.7-8.2 - Platelets down from 405-328 - Sodium down from 138 231 - Potassium down from 6.5-5 - CO2 up from 15-20 - Anion gap down from 29.5-19 - GFR unchanged from 11-12 - Phosphate down from 8.7-6.6 - Magnesium down from 3.5-3 - Intake and output - Urine output 78 mL - Balance since admission +6,872 - Current medications and drips - Norepinephrine at 15 mcg per minute - LR at 150 mL's per hour - Plan Plan:: PLAN Hemorrhagic shock Severe anemia 2/2 acute upper GI bleed, improved Elevated troponin level 2/2 type II MT Hemorrhoids - Protonix 40mg IV BID - Trend Hb/Hct every 4 hours - Goal Hb >8 - F/U surgery - Continue Levophed Acute on chronic kidney disease, stage III, stable High anion gap metabolic acidosis, improved Hyponatremia Hypermagnesemia/Hyperphosphatemia, improved - Monitor urine output - Renally dosed medications - Repeat labs in AM Atrial fibrillation, rate controlled Chronic anticoagulation - Continue to hold Xarelto and ASA Hypertension - Hold home medications until BP stable and patient is not bleeding Systolic heart failure secondary to coronary artery disease Stented coronary artery - Goal Hb >8 - Request prior echocardiogram Alzheimer's dementia - Let me sleep protocol as much as possible Chronic neck pain - Home pain management Polypharmacy - Reconcile and discontinue as per BEERS criteria Hyperkalemia, resolved PROPHYLAXIS DVT- compression stockings, pharmacologic contraindicated GI- Scheduled Protonix CODE STATUS: DNR/DNI DISPOSITION: Patient will remain admitted to ICU for hemodynamic stabilization.
--- NOTE | 2020-04-10 14:20 | CT ---
CT abdomen and pelvis Technique: Multiple axial sections were obtained from above the dome of the diaphragm inferiorly through the pubic symphysis. Intravenous contrast was utilized. No oral contrast has been given. Findings: Moderately large bilateral pleural effusions are seen. Increased density within both lung bases most likely due to compressive atelectasis. These findings have increased in prominence from previous study. Artifact is noted within the abdomen from the patient's arms along the side. Liver shows no discrete abnormality. Heart is enlarged. Spleen size is normal. Left adrenal mass is again noted. Kidneys show symmetric contrast enhancement without hydronephrosis or mass. Pancreas shows no discrete abnormality. Aorta shows atherosclerotic calcification which continues into the iliac vessels. No aneurysm is seen. No retroperitoneal adenopathy or mesenteric abnormalities are seen. Fluid-filled right colon is noted. Slightly prominent gas within the transverse colon. Findings may represent ileus. Increasing body wall edema from prior study is seen. Small amount of fluid is seen within the pelvis. Evans catheter is seen within the bladder. Bone window settings were reviewed which show scattered degenerative change throughout the spine. No acute osseous finding is appreciated. Impression: 1. Pleural effusions and presumed compressive atelectasis within both lung bases. These findings have increased from previous study. 2. Mild increasing body wall edema. 3. Small amount of fluid within the pelvis. 4. Fluid-filled right colon is seen with gas within the transverse colon possibly representing ileus. 5. Evans catheter is present. 6. Left adrenal mass again noted. 7. Other findings as noted above which are felt to be nonacute. Diagnostic code #3 This report was dictated in MDT
[2020-04-10] MEDS ORDERED: LORazepam 2 MG/ML SDV IVPUSH PRN (14:50)
[2020-04-10] MEDS ORDERED: Haloperidol Lactate 5 MG/ML SDV IVPUSH PRN (17:27)
[2020-04-10] MEDS ORDERED: Scopolamine 1.5 MG Transdermal Patch TRDERM PRN (17:27)
[2020-04-10] MEDS ORDERED: Atropine 1% Ophth Soln 5 ML BOTTLE SL PRN (17:27)
[2020-04-10] MEDS ORDERED: Lactoperoxi/Gluc Oxid/Pot Thio 42 GM Tube MUCMEM PRN (17:27)
[2020-04-10] MEDS ORDERED: Carboxymethylcellulose Sodium 1% Ophth Gel 15 ML Bottle EYEBOTH PRN (17:27)
[2020-04-10] MEDS ORDERED: Albuterol 0.083% 2.5 MG/3 ML Neb Soln NEB PRN (17:27)
[2020-04-10] MEDS ORDERED: Ondansetron 4 MG/2 ML SDV IVPUSH PRN (17:27)
[2020-04-10 18:34] VITALS: BP 64/54
--- NOTE | 2020-04-10 19:38 | PCM.DCSUM1 ---
Discharge Summary - Hospital Course HPI Initial Comments: This is [id number] woman with past medical history of coronary artery disease, on a baby aspirin, and atrial fibrillation, on Xarelto and metoprolol, who is now brought to the ED from her residence at [facility], with a report that she had neck pain and dyspnea since the weekend, and that she developed upper abdominal pain today. She denies vomiting or diarrhea. According to the patient's daughter, she has not had similar symptoms in the past. Of note she has not been eating well for the past few days. - Discharge Data Discharge Date: 04/10/20 Discharge Disposition: 20 Preliminary Cause of *Q: Cardiac Arrest Condition: - Referral to Home Health Primary Care Physician: Jameson Stanley MD - Discharge Diagnosis/Problem(s) (1) Hemorrhagic shock SNOMED Code(s): 743672 ICD Code: R57.8 - OTHER SHOCK Status: Acute Current Visit: Yes (2) Hypotension due to blood loss SNOMED Code(s): 19355781 ICD Code: I95.89 - OTHER HYPOTENSION Status: Acute Current Visit: Yes (3) Severe anemia SNOMED Code(s): 870439508 ICD Code: D64.9 - ANEMIA, UNSPECIFIED Status: Acute Current Visit: Yes (4) Upper GI bleed SNOMED Code(s): 84589032 ICD Code: K92.2 - GASTROINTESTINAL HEMORRHAGE, UNSPECIFIED Status: Acute Current Visit: Yes (5) Elevated troponin level not due to acute coronary syndrome SNOMED Code(s): 976360904, 613387385, 399009690 ICD Code: R79.89 - OTHER SPECIFIED ABNORMAL FINDINGS OF BLOOD CHEMISTRY Status: Acute Current Visit: Yes (6) Hemorrhoids SNOMED Code(s): 17822062 ICD Code: K64.9 - UNSPECIFIED HEMORRHOIDS Status: Acute Current Visit: Yes (7) Acute kidney injury SNOMED Code(s): 81623430, 83920759 ICD Code: N17.9 - ACUTE KIDNEY FAILURE, UNSPECIFIED Status: Acute Current Visit: Yes (8) Chronic kidney disease (CKD), stage III (moderate) SNOMED Code(s): 076505497 ICD Code: N18.3 - CHRONIC KIDNEY DISEASE, STAGE 3 (MODERATE) Status: Acute Current Visit: Yes (9) High anion gap metabolic acidosis SNOMED Code(s): 27118578 ICD Code: E87.2 - ACIDOSIS Status: Acute Current Visit: Yes (10) Hyperkalemia SNOMED Code(s): 13110827 ICD Code: E87.5 - HYPERKALEMIA Status: Acute Current Visit: Yes (11) Hypermagnesemia SNOMED Code(s): 30601357 ICD Code: E83.41 - HYPERMAGNESEMIA Status: Acute Current Visit: Yes (12) Hyperphosphatemia SNOMED Code(s): 99664763 ICD Code: E83.39 - OTHER DISORDERS OF PHOSPHORUS METABOLISM Status: Acute Current Visit: Yes (13) Atrial fibrillation SNOMED Code(s): 63174788 ICD Code: I48.91 - UNSPECIFIED ATRIAL FIBRILLATION Status: Acute Current Visit: Yes (14) Chronic anticoagulation SNOMED Code(s): 417887266 ICD Code: Z79.01 - TICKET SORTER (CURRENT) USE OF ANTICOAGULANTS Status: Acute Current Visit: Yes (15) Hypertension SNOMED Code(s): 82783853 ICD Code: I10 - ESSENTIAL (PRIMARY) HYPERTENSION Status: Acute Current Visit: Yes (16) Systolic heart failure secondary to coronary artery disease SNOMED Code(s): 093599279 ICD Code: I50.20 - UNSPECIFIED SYSTOLIC (CONGESTIVE) HEART FAILURE; I25.10 - ATHSCL HEART DISEASE OF [place] CORONARY ARTERY W/O ANG PCTRS Status: Acute Current Visit: Yes (17) Stented coronary artery Status: Acute Current Visit: Yes (18) Alzheimer's dementia SNOMED Code(s): 09136914 ICD Code: G30.9 - ALZHEIMER'S DISEASE, UNSPECIFIED; F02.80 - DEMENTIA IN OTH DISEASES CLASSD ELSWHR W/O BEHAVRL DISTURB Status: Acute Current Visit: Yes (19) Former smoker SNOMED Code(s): 6154800 ICD Code: Z87.891 - PERSONAL HISTORY OF NICOTINE DEPENDENCE Status: Acute Current Visit: Yes (20) Chronic neck pain SNOMED Code(s): 7624078418345 ICD Code: M54.2 - CERVICALGIA; G89.29 - OTHER CHRONIC PAIN Status: Acute Current Visit: No (21) Polypharmacy SNOMED Code(s): 560626216 ICD Code: Z79.899 - OTHER RESIDENTIAL (CURRENT) DRUG THERAPY Status: Acute Current Visit: Yes (22) Iron deficiency SNOMED Code(s): 26374586 ICD Code: E61.1 - IRON DEFICIENCY Status: Acute Current Visit: Yes (23) Hyponatremia SNOMED Code(s): 02741304 ICD Code: E87.1 - HYPO-OSMOLALITY AND HYPONATREMIA Status: Acute Current Visit: Yes (24) Oliguria SNOMED Code(s): 57668576 ICD Code: R34 - ANURIA AND OLIGURIA Status: Acute Current Visit: Yes - Patient Summary/Data Consults: Consultations 04/09/20 17:50 Consult to Physician [CONS] Stat Hospital Course: 04/09/20 - Came in complaining of neck pain and SOB x 5 days associated with abdominal pain today - No vomiting or diarrhea - In ED BP is found to be low, with bradycardia - On examination, she complained of epigastric abdominal tenderness, and on rectal exam, she had black stool that was grossly heme positive - Case discussed with surgery who did not recommend emergent EGD - Lab results - H/H at 5.7/21.2, and her BP went down to 49/28. - ER gave 500mL bolus of LR - Transfused 2u PRBCs - Requested 2u FFP - Given K centra - WBC count 15.50 and platelets of 405,000. - Potassium 6.5, bicarbonate 15, anion gap 29.5, GFR 11 - Prior labs from 08/2019 with GFR 30, normal electrolytes and no gap - Troponin is 0.182. - Normal UA - Upon my evaluation patient's blood pressure continued to decline, 99/46-->83/41-->63/32-->61/30 - Patient still complaining of severe abdominal pain --> CTA to r/o aortic dissection --> ruled out - Since BP continued to drop regarding IVF and blood transfusion --> Central line placed and started on norepinephrine PLAN - Transfuse 2u PRBCs - Protonix 40mg IV BID - Trend Hb/Hct every 4 hours - Goal Hb >8 - Kcentra now 2K units - FFP x 2 - Consult surgery - Central line insertion - Start Levophed - Insert NG tube - Insert Evans catheter - Hold Xarelto and ASA - Gold home medications - Admitted to ICU for close monitorization of hemodynamic status, trending hemoglobin and stabilization. 04/10/20 - Significantly agitates and confused overnight, did not respond to Ativan or Haldol - Complaining of severe abdominal pain--> given morphine which resolved pain and patient finally fell asleep - Became short of breath overnight, placed on 3L NC - VS trend - MAP: 51-76 - HR: 61-76 - Tmax: 97.6 - SatO2 > 86% - New lab results - Hb up from 3.7-8.2 - Platelets down from 405-328 - Sodium down from 138 231 - Potassium down from 6.5-5 - CO2 up from 15-20 - Anion gap down from 29.5-19 - GFR unchanged from 11-12 - Phosphate down from 8.7-6.6 - Magnesium down from 3.5-3 - Intake and output - Urine output 78 mL - Balance since admission +[phone] - Current medications and drips - Norepinephrine at 15 mcg per minute - LR at 150 mL's per hour - Patient was on Levophed at 15mcgs and we were unable to wean off - 1 order of PRBCs and FFP ordered - While she was getting PRBCs developed worsening hypoxemia that required placement on non-rebreather mask - This stabilized oxygenation - Surgery evaluated patient and recommended CT abdomen to evaluate for mesenteric ischemia --> reported negative - Patient's hemodynamics continued to decline for which conversation was had with family who asked care goal to be changed to comfort measures - MPOA, daughter asked us to wait for the rest of the family members to come and say good bye - IVF discontinued - Family arrived back around 1800 - Norepinephrine discontinued at 1810 - Patient pronounced at 1840 - Discharge Plan *PRESCRIPTION DRUG MONITORING PROGRAM REVIEWED*: Not Applicable *COPY OF PRESCRIPTION DRUG MONITORING REPORT IN PATIENT BERTO: Not Applicable Home Medications: Home Meds Acetaminophen [Tylenol Arthritis Pain] 650 mg PO Q6HR PRN 12/03/13 [History] Isosorbide Mononitrate [Imdur] 120 mg PO DAILY 12/03/13 [History] amLODIPine Besylate [Amlodipine Besylate] 5 mg PO DAILY 12/03/13 [History] Rosuvastatin [Crestor] 20 mg PO DAILY 07/24/14 [History] Donepezil HCl [Aricept] 10 mg PO BEDTIME 07/19/17 [History] Metoprolol Tartrate [Lopressor] 25 mg PO BID 07/19/17 [History] Multivitamin [Poly-Vitamin] 1 tab PO DAILY 07/19/17 [History] Aspirin [Halfprin] 81 mg PO DAILY 04/18/19 [History] Cholecalciferol (Vitamin D3) [Vitamin D3] 1,000 unit PO DAILY 04/18/19 [History] Cyanocobalamin (Vitamin B-12) [Vitamin B12] 2,500 mcg PO DAILY 04/18/19 [History] Cyclobenzaprine [Flexeril] 5 mg PO TID PRN 04/18/19 [History] Diclofenac Sodium [Voltaren 1% Gel] 1 applic TOP ASDIRECTED PRN 04/18/19 [History] Folic Acid 1 mg PO DAILY 04/18/19 [History] Ipratropium [place] 2 spray INH TID 04/18/19 [History] Levothyroxine 25 mcg PO DAILY 04/18/19 [History] Loperamide HCl [Imodium A-D] 2 mg PO ASDIRECTED PRN 04/18/19 [History] Loratadine 10 mg PO DAILY 04/18/19 [History] Losartan [Cozaar] 50 mg PO BID 04/18/19 [History] Methyl Salicylate/Menthol [Salonpas Patch] 1 patch TOP ASDIRECTED PRN 04/18/19 [History] Rivaroxaban [Xarelto] 15 mg PO DAILY 04/18/19 [History] Sodium Chloride [Saline Nasal Mist] 2 spray INH ASDIRECTED PRN 04/18/19 [History] Potassium Chloride [Klor-Con 10] 10 meq PO DAILY #10 tablet.er 08/13/19 [Rx] Ubidecarenone [Coenzyme Q10] 1 tab PO DAILY 08/13/19 [History] Furosemide [Lasix] 40 mg PO DAILY 04/10/20 [History] Magnesium Oxide 400 mg PO ACLUNCH 04/10/20 [History] traMADol HCl [Ultram] 50 mg PO Q6H PRN 04/10/20 [History] - Discharge Summary/Plan Comment DC Time >30 min.: No - Patient Data Vitals - Most Recent: Last Vital Signs Temp 96.5 F L 04/10/20 16:00 Pulse 59 L 04/09/20 15:41 Resp 26 H 04/10/20 18:00 BP 64/54 L 04/10/20 18:00 Pulse Ox 93 L 04/10/20 18:00 Weight - Most Recent: 67.767 kg I&O - Last 24 hours: Intake & Output 04/10/20 04/10/20 04/10/20 06:59 14:59 22:59 Intake Total 1928 0 2333 Output Total 63 185 20 Balance 1865 -185 2313 Lab Results - Last 24 hrs: Laboratory Results - last 24 hr 04/09/20 04/09/20 04/09/20 Range/Units 15:53 16:45 21:55 WBC (3.98-10.04) K/mm3 RBC (3.98-5.22) M/mm3 Hgb 8.9 L (11.2-15.7) gm/dl Hct 30.1 L (34.1-44.9) % MCV (79.4-94.8) fl MCH (25.6-32.2) pg MCHC (32.2-35.5) g/dl RDW Std Deviation (36.4-46.3) fL Plt Count (182-369) K/mm3 MPV (9.4-12.3) fl Neut % (Auto) (34.0-71.1) % Lymph % (Auto) (19.3-51.7) % [place] % (Auto) (4.7-12.5) % Eos % (Auto) (0.7-5.8) Baso % (Auto) (0.1-1.2) % Neut # (Auto) (1.56-6.13) K/mm3 Lymph # (Auto) (1.18-3.74) K/mm3 [place] # (Auto) (0.24-0.36) K/mm3 Eos # (Auto) (0.04-0.36) K/mm3 Baso # (Auto) (0.01-0.08) K/mm3 Manual Slide Review PT (9.7-12.0) SECONDS INR Puncture Site ABG pH (7.35-7.45) ABG pCO2 (35.0-45.0) mmHg ABG pO2 (80.0-100.0) mmHg ABG HCO3 (22.0-26.0) meq/L ABG O2 Saturation (96.0-97.0) % ABG Base Excess (-2-2.0) Edward Test O2 Delivery Device Oxygen Flow Rate FiO2 (21.00-100.00) % Sodium (136-145) mEq/L Potassium (3.5-5.1) mEq/L Chloride (98-107) mEq/L Carbon Dioxide (21-32) mEq/L Anion Gap (5-15) BUN (7-18) mg/dL Creatinine (0.55-1.02) mg/dL Est Cr Clr Drug Dosing mL/min Estimated GFR (MDRD) (>60) mL/min BUN/Creatinine Ratio (14-18) Glucose (83-115) mg/dL Calcium (8.5-10.1) mg/dL Phosphorus (2.6-4.7) mg/dL Magnesium (1.8-2.4) mg/dl Iron (50-170) ug/dL TIBC (100-400) ug/dL % Saturation (20-55) % Transferrin (202-364) mg/dL MRSA (PCR) Blood Type AB POSITIVE Gel Antibody Screen Negative Crossmatch See Detail See Detail 04/10/20 04/10/20 04/10/20 Range/Units 01:41 05:50 09:10 WBC (3.98-10.04) K/mm3 RBC (3.98-5.22) M/mm3 Hgb 8.4 L 8.2 L (11.2-15.7) gm/dl Hct 28.6 L 27.8 L (34.1-44.9) % MCV (79.4-94.8) fl MCH (25.6-32.2) pg MCHC (32.2-35.5) g/dl RDW Std Deviation (36.4-46.3) fL Plt Count (182-369) K/mm3 MPV (9.4-12.3) fl Neut % (Auto) (34.0-71.1) % Lymph % (Auto) (19.3-51.7) % [place] % (Auto) (4.7-12.5) % Eos % (Auto) (0.7-5.8) Baso % (Auto) (0.1-1.2) % Neut # (Auto) (1.56-6.13) K/mm3 Lymph # (Auto) (1.18-3.74) K/mm3 [place] # (Auto) (0.24-0.36) K/mm3 Eos # (Auto) (0.04-0.36) K/mm3 Baso # (Auto) (0.01-0.08) K/mm3 Manual Slide Review PT 17.2 H (9.7-12.0) SECONDS INR 1.62 Puncture Site ABG pH (7.35-7.45) ABG pCO2 (35.0-45.0) mmHg ABG pO2 (80.0-100.0) mmHg ABG HCO3 (22.0-26.0) meq/L ABG O2 Saturation (96.0-97.0) % ABG Base Excess (-2-2.0) Edward Test O2 Delivery Device Oxygen Flow Rate FiO2 (21.00-100.00) % Sodium (136-145) mEq/L Potassium (3.5-5.1) mEq/L Chloride (98-107) mEq/L Carbon Dioxide (21-32) mEq/L Anion Gap (5-15) BUN (7-18) mg/dL Creatinine (0.55-1.02) mg/dL Est Cr Clr Drug Dosing mL/min Estimated GFR (MDRD) (>60) mL/min BUN/Creatinine Ratio (14-18) Glucose (83-115) mg/dL Calcium (8.5-10.1) mg/dL Phosphorus (2.6-4.7) mg/dL Magnesium (1.8-2.4) mg/dl Iron (50-170) ug/dL TIBC (100-400) ug/dL % Saturation (20-55) % Transferrin (202-364) mg/dL MRSA (PCR) Blood Type Gel Antibody Screen Crossmatch 04/10/20 04/10/20 04/10/20 Range/Units 09:10 09:10 09:10 WBC 5.16 (3.98-10.04) K/mm3 RBC 3.43 L (3.98-5.22) M/mm3 Hgb 8.7 L (11.2-15.7) gm/dl Hct 28.6 L (34.1-44.9) % MCV 83.4 (79.4-94.8) fl MCH 25.4 L (25.6-32.2) pg MCHC 30.4 L (32.2-35.5) g/dl RDW Std Deviation 48.2 H (36.4-46.3) fL Plt Count 328 D (182-369) K/mm3 MPV 10.6 (9.4-12.3) fl Neut % (Auto) 76.1 H (34.0-71.1) % Lymph % (Auto) 19.0 L (19.3-51.7) % [place] % (Auto) 4.5 L (4.7-12.5) % Eos % (Auto) 0 L (0.7-5.8) Baso % (Auto) 0.2 (0.1-1.2) % Neut # (Auto) 3.93 (1.56-6.13) K/mm3 Lymph # (Auto) 0.98 L (1.18-3.74) K/mm3 [place] # (Auto) 0.23 L (0.24-0.36) K/mm3 Eos # (Auto) 0.00 L (0.04-0.36) K/mm3 Baso # (Auto) 0.01 (0.01-0.08) K/mm3 Manual Slide Review Abnormal smear PT (9.7-12.0) SECONDS INR Puncture Site ABG pH (7.35-7.45) ABG pCO2 (35.0-45.0) mmHg ABG pO2 (80.0-100.0) mmHg ABG HCO3 (22.0-26.0) meq/L ABG O2 Saturation (96.0-97.0) % ABG Base Excess (-2-2.0) Edward Test O2 Delivery Device Oxygen Flow Rate FiO2 (21.00-100.00) % Sodium 131 L (136-145) mEq/L Potassium 5.0 D (3.5-5.1) mEq/L Chloride 97 L (98-107) mEq/L Carbon Dioxide 20 L (21-32) mEq/L Anion Gap 19.0 H (5-15) BUN 83 H (7-18) mg/dL Creatinine 3.5 H (0.55-1.02) mg/dL Est Cr Clr Drug Dosing 10.33 mL/min Estimated GFR (MDRD) 12 (>60) mL/min BUN/Creatinine Ratio 23.7 H (14-18) Glucose 159 H (83-115) mg/dL Calcium 8.1 L (8.5-10.1) mg/dL Phosphorus 6.6 H (2.6-4.7) mg/dL Magnesium 3.0 H (1.8-2.4) mg/dl Iron 16 L (50-170) ug/dL TIBC 339 (100-400) ug/dL % Saturation 5 L (20-55) % Transferrin 271 (202-364) mg/dL MRSA (PCR) Blood Type Gel Antibody Screen Crossmatch 04/10/20 04/10/20 04/10/20 Range/Units 09:10 12:05 14:00 WBC (3.98-10.04) K/mm3 RBC (3.98-5.22) M/mm3 Hgb 9.4 L (11.2-15.7) gm/dl Hct 30.9 L (34.1-44.9) % MCV (79.4-94.8) fl MCH (25.6-32.2) pg MCHC (32.2-35.5) g/dl RDW Std Deviation (36.4-46.3) fL Plt Count (182-369) K/mm3 MPV (9.4-12.3) fl Neut % (Auto) (34.0-71.1) % Lymph % (Auto) (19.3-51.7) % [place] % (Auto) (4.7-12.5) % Eos % (Auto) (0.7-5.8) Baso % (Auto) (0.1-1.2) % Neut # (Auto) (1.56-6.13) K/mm3 Lymph # (Auto) (1.18-3.74) K/mm3 [place] # (Auto) (0.24-0.36) K/mm3 Eos # (Auto) (0.04-0.36) K/mm3 Baso # (Auto) (0.01-0.08) K/mm3 Manual Slide Review PT (9.7-12.0) SECONDS INR Puncture Site Rt radial ABG pH 7.28 L (7.35-7.45) ABG pCO2 41.5 (35.0-45.0) mmHg ABG pO2 64.0 L (80.0-100.0) mmHg ABG HCO3 18.8 L (22.0-26.0) meq/L ABG O2 Saturation 88.2 L (96.0-97.0) % ABG Base Excess -7.0 L (-2-2.0) Edward Test Positive O2 Delivery Device Nasal cannula Oxygen Flow Rate 5.0 FiO2 0.00 L (21.00-100.00) % Sodium (136-145) mEq/L Potassium (3.5-5.1) mEq/L Chloride (98-107) mEq/L Carbon Dioxide (21-32) mEq/L Anion Gap (5-15) BUN (7-18) mg/dL Creatinine (0.55-1.02) mg/dL Est Cr Clr Drug Dosing mL/min Estimated GFR (MDRD) (>60) mL/min BUN/Creatinine Ratio (14-18) Glucose (83-115) mg/dL Calcium (8.5-10.1) mg/dL Phosphorus (2.6-4.7) mg/dL Magnesium (1.8-2.4) mg/dl Iron (50-170) ug/dL TIBC (100-400) ug/dL % Saturation (20-55) % Transferrin (202-364) mg/dL MRSA (PCR) Negative Blood Type Gel Antibody Screen Crossmatch [facility] Results - Last 24 hrs: Microbiology 04/09/20 16:06 Urine Culture - Preliminary Urine, Quick Cath (In-Out) Gram Negative Rods Med Orders - Current: Current Medications Albuterol (Proventil Neb Soln) 2.5 mg NEB Q15M PRN PRN Reason: Shortness of Breath Artificial Tears (Refresh Liquigel 1%) 1 - 2 ml EYEBOTH QID PRN; Protocol PRN Reason: Dry Eyes Atropine Sulfate (Atropine 1% Ophth Soln) 0 ml SL Q1H PRN PRN Reason: Resp. secretions or congestion Glucose Oxid/Lactoperoxid/Muramidas (Biotene Oralbalance Gel) 42 gm MUCMEM ASDIRECTED PRN PRN Reason: dry mouth Haloperidol Lactate (Haldol) 1 mg IVPUSH Q1H PRN PRN Reason: delirium or restlessness Lorazepam (Ativan) 1 mg IVPUSH Q30M PRN PRN Reason: Anxiety Miscellaneous Information (Remove Patch) 1 ea TRDERM Q72H PRN PRN Reason: patch removal Morphine Sulfate (Morphine) 1 mg IVPUSH Q30M PRN PRN Reason: Pain Last Admin: 04/10/20 17:13 Dose: 1 mg Documented by: Ondansetron HCl (Zofran) 4 mg IVPUSH Q8H PRN PRN Reason: Nausea Scopolamine (Transderm-Scop) 1.5 mg TRDERM Q72H PRN PRN Reason: Secretions Discontinued Medications Factor IX (Pha) (Kcentra) 2,000 unit IV ONETIME STA Stop: 04/09/20 16:43 Last Admin: 04/09/20 17:05 Dose: 2,000 unit Documented by: Furosemide (Lasix) 40 mg IVPUSH NOW ONE Stop: 04/10/20 09:31 Last Admin: 04/10/20 10:27 Dose: 40 mg Documented by: Haloperidol Lactate (Haldol) 5 mg IVPUSH ONETIME ONE Stop: 04/09/20 22:13 Last Admin: 04/09/20 22:18 Dose: 5 mg Documented by: Sodium Chloride (Normal Saline) 1,000 mls @ 150 mls/hr IV ASDIRECTED [facility] Last Admin: 04/09/20 16:19 Dose: 150 mls/hr Documented by: Lactated Ringer's (Ringers, Lactated) 500 mls @ 999 mls/hr IV .BOLUS ONE Stop: 04/09/20 16:59 Last Admin: 04/09/20 16:40 Dose: 999 mls/hr Documented by: Pantoprazole Sodium 80 mg/ (Sodium Chloride) 100 mls @ 10 mls/hr IV Q10H [facility] Last Admin: 04/09/20 23:18 Dose: Not Given Documented by: Norepinephrine Bitartrate 4 mg (/ Dextrose/Water) 250 mls @ 7.5 mls/hr IV TITRATE RADHA; Protocol Last Admin: 04/10/20 13:39 Dose: 16 mcg/min, 60 mls/hr Documented by: Sodium Chloride (Normal Saline) 100 mls @ 60 mls/hr IV ASDIRECTED RADHA Last Admin: 04/09/20 17:56 Dose: 60 mls/hr Documented by: Lactated Ringer's (Ringers, Lactated) Confirm Administered Dose 1,000 mls @ as directed .ROUTE .STK-MED ONE Stop: 04/09/20 17:29 Last Admin: 04/09/20 18:20 Dose: Not Given Documented by: Lactated Ringer's (Ringers, Lactated) 1,000 mls @ 999 mls/hr IV .BOLUS ONE Stop: 04/09/20 18:31 Last Admin: 04/09/20 17:32 Dose: 999 mls/hr Documented by: Lactated Ringer's (Ringers, Lactated) 1,000 mls @ 999 mls/hr IV .BOLUS ONE Stop: 04/09/20 18:48 Last Admin: 04/09/20 18:34 Dose: 250 mls/hr Documented by: Pantoprazole Sodium 40 mg/ (Sodium Chloride) 100 mls @ 200 mls/hr IV BID RADHA Last Admin: 04/09/20 21:20 Dose: Not Given Documented by: Lactated Ringer's (Ringers, Lactated) 1,000 mls @ 150 mls/hr IV ASDIRECTED [facility] Last Admin: 04/10/20 12:38 Dose: 150 mls/hr Documented by: Sodium Chloride (Normal Saline) 250 mls @ 100 mls/hr IV ASDIRECTED [facility] Last Admin: 04/10/20 10:20 Dose: 100 mls/hr Documented by: Iopamidol (Isovue-370 (76%)) 100 ml IVPUSH ONETIME ONE Stop: 04/09/20 17:19 Last Admin: 04/09/20 17:56 Dose: 100 ml Documented by: Morphine Sulfate (Morphine) 2 mg IVPUSH ONETIME ONE Stop: 04/09/20 22:49 Last Admin: 04/09/20 23:01 Dose: 2 mg Documented by: Morphine Sulfate (Morphine) 2 mg IVPUSH ONETIME ONE Stop: 04/10/20 04:41 Last Admin: 04/10/20 04:46 Dose: 2 mg Documented by: Morphine Sulfate (Morphine) 1 mg IVPUSH Q4H PRN PRN Reason: Pain Last Admin: 04/10/20 13:13 Dose: 1 mg Documented by: Norepinephrine Bitartrate (Levophed) Confirm Administered Dose 4 mg .ROUTE .STK- MED ONE Stop: 04/09/20 23:39 Last Admin: 04/09/20 23:54 Dose: Not Given Documented by: Pantoprazole Sodium (Protonix Iv) 80 mg IVPUSH BOLUS ONE Stop: 04/09/20 16:30 Last Admin: 04/09/20 17:10 Dose: 80 mg Documented by: Pantoprazole Sodium (Protonix Iv) Confirm Administered Dose 40 mg .ROUTE .STK-MED ONE Stop: 04/09/20 21:18 Last Admin: 04/09/20 21:23 Dose: Not Given Documented by: Pantoprazole Sodium (Protonix Iv) 40 mg IVPUSH Q12H RADHA Last Admin: 04/10/20 09:13 Dose: 40 mg Documented by: Quetiapine Fumarate (Seroquel) 12.5 mg PO ONETIME ONE Stop: 04/09/20 21:08 Last Admin: 04/09/20 21:21 Dose: 12.5 mg Documented by: Sodium Chloride (Saline Flush) 10 ml FLUSH ONETIME PRN PRN Reason: Keep Vein Open Last Admin: 04/09/20 17:56 Dose: 10 ml Documented by: Discharge Operative/Procedures - Procedures Performed CL Indication: medication administration *Q Meaningful Use (DIS) - VTE *Q VTE Pharmacological Contraindications *Q: Risk of Bleeding
[2020-04-11 12:02] VITALS: PULSE 79
== END 2020-04-10 20:21 | disposition expired | DRG 377 ==
LOC: JD.ED 15:18 → JD.ICU 17:46 → UNDOADMIN 18:23 → UNDODISIN 04-10 20:21
PROVIDERS: ADMIT Internal Medicine; ATTEND Internal Medicine
PROC: 02H633Z Insertion of Infusion Device into Right Atrium, Percutaneous Approach (ICD-10-PCS; principal; 2020-04-09)
PROC: B548ZZA Ultrasonography of Superior Vena Cava, Guidance (ICD-10-PCS; 2020-04-09)
PROC: 3E043XZ Introduction of Vasopressor into Central Vein, Percutaneous Approach (ICD-10-PCS; 2020-04-09)
PROC: 30233N1 Transfusion of Nonautologous Red Blood Cells into Peripheral Vein, Percutaneous Approach (ICD-10-PCS; 2020-04-09)
DX: K92.2 Gastrointestinal hemorrhage, unspecified (principal); I50.23 Acute on chronic systolic (congestive) heart failure; I21.A1 Myocardial infarction type 2; N17.9 Acute kidney failure, unspecified; I13.0 Hypertensive heart and chronic kidney disease with heart failure and stage 1 through stage 4 chronic kidney disease, or unspecified chronic kidney disease; N18.9 Chronic kidney disease, unspecified; E87.1 Hypo-osmolality and hyponatremia; N39.0 Urinary tract infection, site not specified; E87.2 Acidosis; R57.8 Other shock; I46.9 Cardiac arrest, cause unspecified; I50.9 Heart failure, unspecified; D64.9 Anemia, unspecified; Z51.5 Encounter for palliative care; Z66 Do not resuscitate; Z20.828 Contact with and (suspected) exposure to other viral communicable diseases; M48.00 Spinal stenosis, site unspecified; K64.9 Unspecified hemorrhoids; N18.3 Chronic kidney disease, stage 3 (moderate); E87.5 Hyperkalemia; E83.42 Hypomagnesemia; I48.91 Unspecified atrial fibrillation; B96.89 Other specified bacterial agents as the cause of diseases classified elsewhere; I25.10 Atherosclerotic heart disease of native coronary artery without angina pectoris; G30.9 Alzheimer's disease, unspecified; I95.89 Other hypotension; F02.80 Dementia in other diseases classified elsewhere, unspecified severity, without behavioral disturbance, psychotic disturbance, mood disturbance, and anxiety; M54.2 Cervicalgia; G89.29 Other chronic pain; I73.9 Peripheral vascular disease, unspecified; R34 Anuria and oliguria; J30.9 Allergic rhinitis, unspecified; H54.7 Unspecified visual loss; M54.9 Dorsalgia, unspecified; E78.00 Pure hypercholesterolemia, unspecified; G47.00 Insomnia, unspecified; Z98.49 Cataract extraction status, unspecified eye; Z79.01 Long term (current) use of anticoagulants; Z87.891 Personal history of nicotine dependence; Z79.899 Other long term (current) drug therapy; Z88.8 Allergy status to other drugs, medicaments and biological substances; Z88.6 Allergy status to analgesic agent; Z79.82 Long term (current) use of aspirin; I25.2 Old myocardial infarction; Z79.890 Hormone replacement therapy; Z95.5 Presence of coronary angioplasty implant and graft; Z90.49 Acquired absence of other specified parts of digestive tract; Z90.710 Acquired absence of both cervix and uterus; Z98.890 Other specified postprocedural states; Z86.010 Personal history of colon polyps; Z98.1 Arthrodesis status
CPT/HCPCS: 36415; 36430; 36556; 36600; 51702; 71045; 71045-26; 71275; 71275-26; 74176; 74176-26; 80048; 80053; 81001; 82803; 83540; 83735; 84100; 84466; 84484; 85014; 85018; 85025; 85610; 86850; 86900; 86901; 86922; 87086; 87088; 87186; 87641; 93005; 93010; 96361; 96374; 96375; 97165-GO; 99223; 99238; 99285; 99285-25; A9270-GY; C9113; C9132; J1630; J1940; J2270; J7030; J7050; J7060; J7120; P9016; Q9967; U0002